=== PATIENT | female | born 1950 | race Caucasian/White ===

== ENCOUNTER → 2020-07-28 14:26 | Outpatient (BNVA) | payer MEDICARE, OTHER, SELFPAY | PROVIDERS: Family Provider Family Medicine; PCP Family Medicine Adult Medicine; Visit Provider Family Medicine Adult Medicine | DX: Z00.00 Encounter for general adult medical examination without abnormal findings (principal); E78.5 Hyperlipidemia, unspecified; I10 Essential (primary) hypertension | CPT/HCPCS: 80053; 80061; 84443; 85025 ==

== ENCOUNTER 2020-09-01 14:30 | Outpatient (CLI) | payer MEDICARE, OTHER, SELFPAY ==
--- NOTE | 2020-09-01 14:43 | MM_ITS ---
WS: [id number] BILATERAL SCREENING DIGITAL MAMMOGRAM WITH CAD HISTORY: SCREENING COMPARISON: 07/02/2019 and 04/29/2018 Bilateral CC and MLO views submitted. Computer aided detection analyzed. Breast composition: There are scattered areas of fibroglandular density. No suspicious masses, microc alcifications or architectural distortion. Benign scattered calcifications in each breast. MM/[place] [id number] IMPRESSION: BI-RADS: 2-Benign FOLLOW UP: 1 Year Follow-up
== END 2020-09-01 14:31 | disposition home or self-care (01) ==
LOC: RADSHAW 14:37
PROVIDERS: PCP Family Medicine Adult Medicine; Visit Provider Family Medicine Adult Medicine
DX: Z12.31 Encounter for screening mammogram for malignant neoplasm of breast (principal)
CPT/HCPCS: 77067

== ENCOUNTER → 2020-12-15 10:15 | Outpatient (BNVA) | payer MEDICARE, OTHER, SELFPAY | PROVIDERS: PCP Family Medicine Adult Medicine; Visit Provider Family Medicine Adult Medicine | DX: E78.5 Hyperlipidemia, unspecified (principal); Z00.00 Encounter for general adult medical examination without abnormal findings; L98.9 Disorder of the skin and subcutaneous tissue, unspecified; I10 Essential (primary) hypertension | CPT/HCPCS: 80061 ==

== ENCOUNTER → 2021-07-10 08:56 | Outpatient (BNVA) | payer MEDICARE, OTHER, SELFPAY | PROVIDERS: PCP Family Medicine Adult Medicine; Visit Provider Family Medicine Adult Medicine | DX: E78.5 Hyperlipidemia, unspecified (principal); Z13.6 Encounter for screening for cardiovascular disorders | CPT/HCPCS: 80053; 80061; 83036; 84443; 85025 ==

== ENCOUNTER 2021-10-27 08:56 | Outpatient (CLI) | payer MEDICARE, OTHER, SELFPAY ==
--- NOTE | 2021-10-27 09:18 | MM_ITS ---
WS: [id number] BILATERAL 3D TOMOSYNTHESIS DIGITAL SCREENING MAMMOGRAPHY WITH CAD CLINICAL INFORMATION: SCREENING HISTORY: Screening mammogram. No current complaints. COMPARISON: September 01, 2020 TECHNIQUE: Bilateral CC and MLO views. FINDINGS: Scattered fibroglandular densities bilaterally. Progressed ovoid nodule subareolar RIGHT breast with new punctate calcifications. Recommend RIGHT diagnostic mammography and ultrasound for further evalua tion. Vascular calcification. Stable incidental punctate calcifications. LEFT breast is unchanged. St ereotactic biopsy marker RIGHT breast. MM/[place] [id number] IMPRESSION: BI-RADS: 0-Incomplete: Need additional imaging evaluation FOLLOW UP: Need Additional Imaging Recommendation RIGHT breast diagnostic mammography and ultrasound for further e valuation.
== END 2021-10-27 08:57 | disposition home or self-care (01) ==
PROVIDERS: PCP Family Medicine Adult Medicine; Visit Provider Family Medicine Adult Medicine
DX: Z12.31 Encounter for screening mammogram for malignant neoplasm of breast (principal)
CPT/HCPCS: 77063; 77067

== ENCOUNTER 2021-11-17 10:22 | Outpatient (CLI) | payer MEDICARE, OTHER, SELFPAY ==
--- NOTE | 2021-11-17 10:29 | MM_ITS ---
WS: [id number] RIGHT 3D TOMOSYNTHESIS DIGITAL MAMMOGRAPHY WITH CAD CLINICAL INFORMATION: ovoid nodule subareolar COMPARISON: October 27, 2021 TECHNIQUE: 5 views of the right breast were obtained. FINDINGS: Scattered fibroglandular densities of the right breast. Stable ovoid nodule 12:00 RIGHT breast with p unctate calcifications. Ultrasound is pending. ULTRASOUND BREAST RIGHT TECHNIQUE: Ultrasound right breast focused area of concern. CLINICAL INFORMATION: ovoid nodule subareolar COMPARISON: None. FINDINGS: Ultrasound RIGHT breast 11 to 1:00 position. At the 12:00 position, 2 cm from the nipple, is a mixed echogenicity solid appearing 6 x 7 x 5 mm lesion with calcification. This lesion is indeterminant and recommend further evaluation with ultrasound-guided biopsy. MM/[place] [id number] IMPRESSION: BI-RADS: 4-Suspicious Finding-Biopsy Should Be Considered FOLLOW UP: US Guided Biopsy Recommended Recommend ultrasound-guided biopsy 12:00 RIGHT breast lesion.
== END 2021-11-17 10:23 | disposition home or self-care (01) ==
PROVIDERS: PCP Family Medicine Adult Medicine; Visit Provider Family Medicine Adult Medicine
DX: R92.8 Other abnormal and inconclusive findings on diagnostic imaging of breast (principal); N63.15 Unspecified lump in the right breast, overlapping quadrants
CPT/HCPCS: 76642; 77061

== ENCOUNTER 2021-11-30 12:14 | Outpatient (CLI) | payer MEDICARE, OTHER, SELFPAY ==
--- NOTE | 2021-11-30 12:28 | US_ITS ---
WS: [id number] ULTRASOUND-GUIDED RIGHT BREAST BIOPSY HISTORY: mixed echogenicity solid appearing 6 x 7 x 5 mm lesion COMPARISON: 11/17/2021 and 10/27/2021 Procedure, risks and complications are explained to the patient. Medications are reviewed. Consent is obtained. The mass in the RIGHT breast is localized with ultrasound. Mass localizes to 12:00, 2 cm from the nip ple. Skin is cleansed with ChloraPrep and anesthetized with 1% buffered lidocaine. Small dermatome is made. Under sterile conditions mass is biopsied with a 14-gauge Achieve needle. Multiple core biopsi es are performed. Material placed in formalin and sent to pathology for review. No complications enco untered. Breast tissue marker (Bard ultrasound enhanced ribbon): Single. Patient left the radiology suite with no complications. Patient is instructed to return to [facility] or [facility] with any concerns. US/[place] [id number] IMPRESSION: 1. Uncomplicated core needle biopsy RIGHT breast mass at 12:00. PATHOLOGY: Benign breast tissue with stromal sclerosis, chronic inflammatory in filtrate or microcalcification. No malignancy. RECOMMENDATION: Diagnostic RIGHT mammogram and ultrasound follow-up in 6 months .
== END 2021-11-30 12:15 | disposition home or self-care (01) ==
LOC: RAD 12:15
PROVIDERS: PCP Family Medicine Adult Medicine; Visit Provider Family Medicine Adult Medicine
DX: R92.8 Other abnormal and inconclusive findings on diagnostic imaging of breast (principal); R92.0 Mammographic microcalcification found on diagnostic imaging of breast
CPT/HCPCS: 19083; 88305

== ENCOUNTER → 2021-12-19 10:23 | Outpatient (BNVA) | payer MEDICARE, OTHER, SELFPAY | PROVIDERS: PCP Family Medicine Adult Medicine; Visit Provider Internal Medicine Cardiovascular Disease | DX: R00.2 Palpitations (principal); Z82.49 Family history of ischemic heart disease and other diseases of the circulatory system; R73.09 Other abnormal glucose | CPT/HCPCS: 99213; 99214 ==

== ENCOUNTER → 2022-03-30 09:38 | Outpatient (BNVA) | payer MEDICARE, OTHER, SELFPAY | PROVIDERS: PCP Family Medicine Adult Medicine; Visit Provider Family Medicine Adult Medicine | DX: R92.8 Other abnormal and inconclusive findings on diagnostic imaging of breast (principal); R73.09 Other abnormal glucose; I10 Essential (primary) hypertension; E78.5 Hyperlipidemia, unspecified | CPT/HCPCS: 80053; 80061; 83036 ==

== ENCOUNTER → 2022-06-25 10:00 | Outpatient (BNVA) | payer MEDICARE, OTHER, SELFPAY | PROVIDERS: PCP Family Medicine Adult Medicine; Visit Provider Registered Nurse Neonatal Intensive Care | DX: N30.01 Acute cystitis with hematuria (principal) | CPT/HCPCS: 81000 ==

== ENCOUNTER → 2022-07-10 11:56 | Outpatient (BNVA) | payer MEDICARE, OTHER, SELFPAY | PROVIDERS: PCP Family Medicine Adult Medicine; Visit Provider Internal Medicine Cardiovascular Disease | DX: R94.31 Abnormal electrocardiogram [ECG] [EKG] (principal); R07.9 Chest pain, unspecified | CPT/HCPCS: 93005 ==

== ENCOUNTER 2022-07-26 07:35 | Outpatient (CLI) | payer MEDICARE, OTHER, SELFPAY ==
--- NOTE | 2022-07-26 07:43 | MM_ITS ---
WS: [id number] DIAGNOSTIC RIGHT DIGITAL TOMOSYNTHESIS MAMMOGRAPHY WITH CAD. RIGHT breast ultrasound, limited HISTORY: Rt breast biopsy 11/30/2021 recommended 6 months f/u COMPARISON: 11/17/2021, 10/27/2021, 09/01/2020, 11/30/2021 Technique: CC, MLO and ML views. Spot compression RIGHT CC. Breast composition: There are scattered areas of fibroglandular density. Biopsy clip in the recently biopsied mass in the anterior RIGHT breast at 12:00 is identified. The mass has significantly decrea sed in size with just a few residual calcifications. This area measures approximately 3.6 mm at a max imum diameter. Otherwise benign calcifications. RIGHT breast ultrasound, limited. Previously biopsied mass with calcifications at 12:00, 2 cm from the nipple, is reidentified measuri ng 4 x 4 x 3 mm. Mass has decreased in size since the prior ultrasound and biopsy. MM/[place] [id number] IMPRESSION: BI-RADS: 3-Probably Benign FOLLOW UP: 6 Month Follow-up Patient to return to annual screening mammography.
== END 2022-07-26 07:36 | disposition home or self-care (01) ==
LOC: RAD 07:35
PROVIDERS: PCP Family Medicine Adult Medicine; Visit Provider Family Medicine Adult Medicine
DX: R92.8 Other abnormal and inconclusive findings on diagnostic imaging of breast (principal)
CPT/HCPCS: 76642; 77061; G0279

== ENCOUNTER 2022-08-03 02:32 | Observation (INO) | payer MEDICARE, OTHER, SELFPAY ==
[2022-08-03] VITALS (57 sets, daily range): BP systolic 103–129; BP diastolic 47–80; PULSE 59–167; RESP 14–26; TEMP 36.6; O2SAT 91–97; BMI 28.2
--- NOTE | 2022-08-03 02:35 | ECG_ITS ---
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 Measurements Intervals [place] Rate: 163 P: 0 NV: 0 QRS: 28 QRSD: 95 T: 16 QT: 266 QTc: 438 Interpretive Statements ATRIAL FIBRILLATION WITH RAPID VENTRICULAR RESPONSE MODERATE ST DEPRESSION [0.05+ mV ST DEPRESSION] CRITICAL TEST RESULT No previous ECG available for comparison Electronically Signed On 08-03-2022 15:38:52 PLACER MINER by Luciana Crespo M.D. [id number]
--- NOTE | 2022-08-03 02:35 | XRR_ITS ---
PROCEDURE INFORMATION: Exam: XR Chest Exam date and time: 08/03/2022 2:39 AM Age: 71 years old Clinical indication: Pain; Prior surgery; Surgery type: RT shoulder. Breast biopsy. Patient HX: C/O palpitations; Additional info: Cp TECHNIQUE: Imaging protocol: Radiologic exam of the chest. Views: 1 view. COMPARISON: No relevant prior studies available. FINDINGS: Lungs: There is a background of emphysema and pulmonary fibrosis. Some hazy opacities are seen in the lower hemithoraces. There is mild indistinctness of pulmonary vasculature. These findings could represent mild pulmonary edema. Pleural spaces: Unremarkable. No pleural effusion. No pneumothorax. Heart/Mediastinum: Unremarkable. No cardiomegaly. Bones/joints: Unremarkable. XR/XR chest 1V portable [id number] IMPRESSION: 1. There may be mild pulmonary edema superimposed over the patient's background emphysema and pulmonary fibrosis.
--- NOTE | 2022-08-03 02:47 | W.ED.ARRPALP ---
HPI - Arrhythmia/Palpitations General: Chief Complaint: Arrhythmia/Palpitations Stated Complaint: heart racing, light headed Time Seen by Provider: 08/03/22 02:35 Source: patient Mode of arrival: ambulatory Limitations: no limitations History of Present Illness: 77-year-old female states since midnight she has been feeling lightheaded along with palpitations she states her hearts been racing for 3 hours she has no history of SVT or A. fib she is in A. fib with RVR with heart rate in the 160s here she denies any pain denies any shortness of breath. Associated symptoms: Deny nausea or vomiting Review of Systems Const: Denies: fever(s), chills, body aches or change in appetite Eyes: Denies: blurry vision or eye discomfort ENMT: Denies: throat pain or dental pain Card: Reports: palpitations and irregular heart rhythm Resp: Denies: dyspnea GI: Denies: abdominal pain, nausea, vomiting or diarrhea : Denies: dysuria Musc: Denies: neck pain or back pain Skin/Breast: Denies: rash Neuro: Denies: headache(s) Psych: Denies: depression Carmelo/Lymph: Denies: easy bruising All/Imm: Denies: urticaria PFSH ED PFSH: Medical History Abnormal mammogram of right breast Acute eczema Atopic dermatitis and related condition Contact dermatitis and other eczema due to plants (except food) Dyslipidemia Encounter for wellness examination Family history of early CAD Hypertension Pain in left shoulder Unspecified rotator cuff tear or rupture of left shoulder, not specified as traumatic Surgical History History of right breast biopsy benign Family History Other CAD (coronary artery disease) Diabetes Hyperlipidemia Hypertension Denies family history of Dementia Anesthesia complication Bleeding disorder Family history of premature coronary artery disease Lung disease Cancer Stroke Social History Smoking and tobacco status: never smoked Alcohol intake: current Alcohol intake frequency: holidays/special occasions only Caregiver/support person: No Lives independently: Yes Household members: spouse Housing: House Marital status: Highest education level completed: Some College, No Degree service: No Current occupational status: retired History of recent travel: Yes Out of state: Yes Current gender identity: Female Beverley/Mandaeism: Shinto Physical Exam Const: COMMON NORMALS: no acute distress, patient oriented x3 and healthy appearing HENMT: COMMON NORMALS: normocephalic and atraumatic HEAD & SCALP: normocephalic and atraumatic Eye: COMMON NORMALS: Equal, round and reactive pupils present and EOMs intact bilaterally PUPIL: Yes Equal, round and reactive pupils present Neck/C-Spine: COMMON NORMALS: full ROM and supple Chest: COMMONS NORMALS: normal inspection of the chest and normal palpation of entire chest wall Resp: COMMON NORMALS: normal respiratory effort, No retractions, No use of accessory muscles and clear to auscultation bilaterally AUSCULTATION: clear to auscultation bilaterally Cardio: COMMON NORMALS: No murmurs present (Cardio) RATE: tachycardic RHYTHM: abnormal rhythm irregularly irregular GI: COMMON NORMALS: Normal to inspection, nondistended, normoactive bowel sounds present, Soft to palpation, non-tender and no masses PALPATION: Yes Soft to palpation Extremity: COMMON NORMALS: normal to inspection and full ROM Neuro: COMMON NORMALS: patient oriented x3, moves all extremities and no focal motor deficits Psych: COMMON NORMALS: mental status grossly normal, Normal thought process present and cooperative THOUGHT PROCESS: Normal thought process present Skin: COMMON NORMALS: no rashes or lesions noted and no wounds GENERAL SKIN EXAM: no rashes or lesions noted Course Vital Signs: Vital signs: Vital Signs Temperature 97.9 F 08/03/22 02:39 Pulse Rate 141 H 08/03/22 03:46 Respiratory Rate 22 H 08/03/22 03:46 Blood Pressure 107/78 08/03/22 03:46 Pulse Oximetry 93 08/03/22 03:46 Oxygen Delivery Me thod 08/03/22 03:46 MDM - Arrhythmia/Palpitations Medical Decision Making Patient presents with Ange valdes with RVR patient initially started on Cardizem her heart rate has improved some she is currently in the 120s she started out in the 160s she has had some hypotension likely due to the Cardizem I am stopping Cardizem we will switch her over to amiodarone I spoke to hospitalist will admit. Lab Data 08/03/22 02:45 08/03/22 02:45 Radiology Impressions Chest X-Ray 08/03/22 02:35 IMPRESSION: 1. There may be mild pulmonary edema superimposed over the patient's background emphysema and pulmonary fibrosis. Laboratory Results WBC 7.5 10^3/uL (4.0-10.0) 08/03/22 02:45 RBC 5.48 10^6/uL (4.1-5.3) H 08/03/22 02:45 Hgb 15.2 g/dL (11.5-15.3) 08/03/22 02:45 Hct 47.7 % (37.0-47.0) H 08/03/22 02:45 MCV 87.0 fl (81-99) 08/03/22 02:45 MCH 27.7 pg (28.0-34.0) L 08/03/22 02:45 MCHC 31.9 g/dL (30.0-36.0) 08/03/22 02:45 RDW 14.5 % (12.1-15.1) 08/03/22 02:45 Plt Count 264 10^3/cmm (130-400) 08/03/22 02:45 MPV 10.3 fL (7.4-10.4) 08/03/22 02:45 Neut % (Auto) 58.0 % 08/03/22 02:45 Lymph % (Auto) 26.2 % 08/03/22 02:45 Whitfield % (Auto) 10.1 % 08/03/22 02:45 Eos % (Auto) 4.7 % 08/03/22 02:45 Baso % (Auto) 0.7 % 08/03/22 02:45 Neut # (Auto) 4.35 10^3/uL (1.8-7.7) 08/03/22 02:45 Lymph # (Auto) 2.0 10^3/uL (0.8-4.8) 08/03/22 02:45 Whitfield # (Auto) 0.8 10^3/uL (0.2-0.9) 08/03/22 02:45 Eos # (Auto) 0.4 10^3/uL (0.0-0.8) 08/03/22 02:45 Baso # (Auto) 0.1 10^3/uL (0.0-0.1) 08/03/22 02:45 Nucleated RBC % (auto) 0 % 08/03/22 02:45 Nucleated RBCs # 0.0 /100WBC 08/03/22 02:45 Sodium 140 mmol/L (136-145) 08/03/22 02:45 Potassium 4.2 mmol/L (3.5-5.1) 08/03/22 02:45 Chloride 106 mmol/L (98-107) 08/03/22 02:45 Carbon Dioxide 22 mmol/L (22-29) 08/03/22 02:45 Anion Gap 16.2 (5-19) 08/03/22 02:45 BUN 14 mg/dL (8-23) 08/03/22 02:45 Creatinine 0.6 mg/dL (0.5-0.9) 08/03/22 02:45 GFR Calculation 98.8 mL/min (90-130) 08/03/22 02:45 Glucose 157 mg/dL (65-115) H 08/03/22 02:45 Calculated Osmolality 294 mOsm/kg (285-295) 08/03/22 02:45 Calcium 9.1 mg/dL (8.5-10.5) 08/03/22 02:45 Total Bilirubin 0.2 mg/dL (0.15-1.2) 08/03/22 02:45 AST 21 U/L (0-32) 08/03/22 02:45 ALT 36 U/L (0-33) H 08/03/22 02:45 Alkaline Phosphatase 101 U/L (35-105) 08/03/22 02:45 Troponin T Baseline 18 ng/L (0-10) H 08/03/22 02:45 Total Protein 6.8 g/dL (6.6-8.7) 08/03/22 02:45 Albumin 3.7 g/dL (3.5-5.2) 08/03/22 02:45 Globulin 3.1 g/dL (1.3-4.6) 08/03/22 02:45 TSH 2.10 uIU/mL (0.27-4.20) 08/03/22 02:45 EKG Data EKG 1: I personally reviewed and interpreted this EKG as follows: EKG interpretation date: 08/03/22 EKG interpretation time: 02:46 Interpretation: afib wih rvr hr [address] or t wave abnormalities qrs 95 qtc 356 Other EKG comments: Chest X-Ray 08/03/22 02:35 IMPRESSION: 1. There may be mild pulmonary edema superimposed over the patient's background emphysema and pulmonary fibrosis. Critical Care Time Critical Care Time: Critical Care Time: Yes Total Critical Care Time: 45 Attestation: The high probability of a clinically significant, sudden or life threatening deterioration of the patient's cv system(s) required my full and direct attention, intervention and personal management. The critical care time is as shown. This time is in addition to time spent performing any reported procedures but includes the following: [x] Data and vital sign review and interpretation [x] Patient assessment, examination and intervention [x] Documentation [x] Medication orders and management Discharge Plan Discharge Patient Disposition: Admitted As Inpatient Clinical Impression: Atrial fibrillation with RVR Condition: Stable Coding Level of Care Code ED Coping Machine Assembler for Chg Fwd Exam Comprehensive
[2022-08-03] MEDS: dilTIAZem 5 mg/mL SDV 5 mL 15 MG IVP (02:52)
[2022-08-03] MEDS: sodium chloride 0.9% 1,000 ML 999 ML IV (02:52)
[2022-08-03 03:05] LABS: Basophils # 0.1 10^3/uL (0.0-0.1); Basophils % 0.7 %; Eosinophils # 0.4 10^3/uL (0.0-0.8); Eosinophils % 4.7 %; Hematocrit 47.7 % (37.0-47.0); Hemoglobin 15.2 g/dL (11.5-15.3); Lymphocytes % 26.2 %; Mean Corpuscular HGB Conc 31.9 g/dL (30.0-36.0); Mean Corpuscular Hemoglobin 27.7 pg (28.0-34.0); Mean Platelet Volume 10.3 fL (7.4-10.4); Monocytes # 0.8 10^3/uL (0.2-0.9); Monocytes % 10.1 %; Neutrophils # 4.35 10^3/uL (1.8-7.7); Nucleated Red Blood Cells % 0 %; Platelet Count 264 10^3/cmm (130-400); Red Blood Count 5.48 10^6/uL (4.1-5.3); Red Cell Distribution Width 14.5 % (12.1-15.1); White Blood Count 7.5 10^3/uL (4.0-10.0)
[2022-08-03 03:25] LABS: Troponin(5th) Baseline 18 ng/L (0-10)
[2022-08-03 03:32] LABS: Alanine Aminotransferase 36 U/L (0-33); Albumin Level 3.7 g/dL (3.5-5.2); Alkaline Phosphatase 101 U/L (35-105); Anion Gap 16.2 (5-19); Aspartate Amino Transferase 21 U/L (0-32); Blood Urea Nitrogen 14 mg/dL (8-23); Calcium 9.1 mg/dL (8.5-10.5); Carbon Dioxide 22 mmol/L (22-29); Chloride 106 mmol/L (98-107); Creatinine Clr Calc Pharmacy 69.5526; Globulin 3.1 g/dL (1.3-4.6); Glomerular Filtration Rate 98.8 mL/min (90-130); Glucose 157 mg/dL (65-115); Osmolality Calculated 294 mOsm/kg (285-295); Potassium 4.2 mmol/L (3.5-5.1); Sodium 140 mmol/L (136-145); Total Bilirubin 0.2 mg/dL (0.15-1.2); Total Protein 6.8 g/dL (6.6-8.7)
[2022-08-03] MEDS: dilTIAZem 100 MG in sodium chloride 0.9% (add-van) 100 ML 10 MG IV (03:42)
--- NOTE | 2022-08-03 04:51 | PM.HP ---
Providers/Chief Complaint Primary Care Provider: Lloyd Gallagher MD Chief Complaint: heart racing, light headed History of Present Illness Keiko Evangelista is a 71 year old female who presents today with chief complaint palpitation. Her symptoms started on midnight. Patient is stating that she has been waking up because of palpitations for quite some days. This time her palpitation was worse and last did until she arrived in the ER and got treatment. No recent fever, viral symptoms, chest pain, nausea vomiting. She has been evaluated by Dr. Santos for her intermittent palpitations in the past. The ER D-dimer was unremarkable Normal CBC and BMP she was in A. fib RVR heart rate 170s, she was started on Cardizem drip which dropped her blood pressure and then she was about to be switched to amiodarone however she converted to normal sinus rhythm She did not receive amiodarone I have given her 30 mg of p.o. Cardizem She does not carry history of hypertension congestive heart failure or diabetes her [id number] is 2 Review of Systems Const: Denies: fever(s) Eyes: Denies: change in vision ENMT: Denies: throat pain Card: Reports: palpitations; Denies: chest pain Resp: Denies: dyspnea GI: Denies: abdominal pain : Denies: flank pain Musc: Denies: neck pain Skin/Breast: Denies: rash Neuro: Denies: headache(s) Psych: Denies: anxiety Endo: Denies: polyuria Carmelo/Lymph: Denies: easy bruising All/Imm: Denies: urticaria Medications/Allergies Home Medications Medication Instructions Recorded Confirmed Last Taken Type beta xgtiwcgl-I-U-lutein-min #29 tab PO 03/24/20 07/14/22 Unknown History 5,000 unit-60 mg-30 unit-2 mg tablet (Macuvite With Lutein) cholecalciferol (vitamin D3) 25 25 mcg PO DAILY 03/24/20 07/14/22 Unknown History mcg (1,000 unit) capsule diflorasone 0.05 % topical ointment 1 applic topical BID 07/28/20 07/14/22 Unknown History clobetasol 0.05 % topical ointment 1 applic topical BID 2 weeks #45 01/16/22 07/14/22 Unknown Rx grams tacrolimus 0.1 % topical ointment 1 applic topical BID #60 grams 01/16/22 07/14/22 Unknown Rx aspirin 81 mg tablet,delayed 81 mg PO .q.o.d. 03/30/22 07/14/22 Unknown History release (Adult Low Dose Aspirin) ezetimibe 10 mg tablet 20 mg PO DAILY cholesterol 90 days 05/22/22 07/14/22 Unknown Rx #180 tabs prednisone 20 mg tablet 20 mg PO BID 5 days #10 tabs 07/14/22 07/14/22 Unknown Rx Allergies Allergy/AdvReac Type Severity Reaction Status Date / Time omeprazole Allergy Mild ALGY-Joint Verified 07/14/22 12:51 Pain bacitracin Allergy ALGY-Redness Verified 07/14/22 12:51 [From Neosporin of Skin ([id number])] neomycin Allergy ALGY-Redness Verified 07/14/22 12:51 [From Neosporin of Skin ([id number]-[id number])] oxycodone [From Percocet] Allergy ADR-Vomitin Verified 07/14/22 12:51 g polymyxin B Allergy ALGY-Redness Verified 07/14/22 12:51 [From Neosporin of Skin (azs-hjr-igfpl)] doxycycline AdvReac Severe ALGY-Anaphy Verified 07/14/22 12:51 laxis atorvastatin AdvReac Intermediate ADR-Muscle Verified 07/14/22 12:51 Pain lovastatin AdvReac ADR-Cramping Verified 07/14/22 12:51 of the Muscles PFSH Acute PFSH: Medical History Abnormal mammogram of right breast Acute eczema Atopic dermatitis and related condition Contact dermatitis and other eczema due to plants (except food) Dyslipidemia Encounter for wellness examination Family history of early CAD Hypertension Pain in left shoulder Unspecified rotator cuff tear or rupture of left shoulder, not specified as traumatic Surgical History History of right breast biopsy benign Family History Other CAD (coronary artery disease) Diabetes Hyperlipidemia Hypertension Denies family history of Dementia Anesthesia complication Bleeding disorder Family history of premature coronary artery disease Lung disease Cancer Stroke Social History Smoking and tobacco status: never smoked Alcohol intake: current Alcohol intake frequency: holidays/special occasions only Caregiver/support person: No Lives independently: Yes Household members: spouse Housing: House Marital status: Highest education level completed: Some College, No Degree service: No Current occupational status: retired History of recent travel: Yes Out of state: Yes Current gender identity: Female Beverley/Cheondoism: Congregational Vitals/I&O/Wt Last Vital Signs Temp 97.9 F 08/03/22 02:39 Pulse 141 H 08/03/22 03:46 Resp 22 H 08/03/22 03:46 BP 107/78 08/03/22 03:46 Pulse Ox 93 08/03/22 03:46 O2 Del Method 08/03/22 03:46 08/02/22 08/02/22 08/03/22 14:59 22:59 06:59 Intake Total 1011 / 1011 Balance 1011 / 1011 Weight last 48 hrs Weight 79.379 kg Physical Exam Narrative: Patient is sitting comfortably in her bed Normal sinus rhythm heart rate in 70s Normal blood pressure Awake and alert Nonfocal neuro exam S1, S2 Abdomen soft No signs of edema Nonfocal neuro exam Pleasant and cooperative Well-hydrated Appears stated age Data 08/03/22 02:45 08/03/22 02:45 A&P Assessment and plan (1) Atrial fibrillation with RVR: (2) Atopic dermatitis and related condition: Plan New onset A. fib with RVR Converted to sinus rhythm with Cardizem I have transitioned her to p.o. Cardizem regimen for now Her Wilbert Vascor is 2, patient is stating she does not take anything for her hypertension she in fact does not carry any history of hypertension as per the patient Her blood pressure is within normal range No history of diabetes or vascular disease, her A1c is 6.3, she is in prediabetic range I would continue aspirin along Cardizem for now and have her follow-up with cardiology outpatient She might be able to go home today D-dimer unremarkable No significant left leg abnormality noted Check magnesium level, potassium is 4.2, TSH normal Full code Cardiac diet DVT prophylaxis Lovenox Attestations Medical Necessity Statement*: Anticipating discharge within 48 hours Time Spent in Patient Care: 40 Coding Level of Care Code Acute Steel Melter for Chg Fwtiffany Diagnoses Atrial fibrillation with RVR I48.91 Atopic dermatitis and related condition L20.9
[2022-08-03] MEDS: dilTIAZem 30 mg Tablet PO (05:06)
[2022-08-03 05:30] LABS: D Dimer 0.59 ug/mIFEU (0-0.59)
--- NOTE | 2022-08-03 06:29 | USCV_ITS ---
Keiko Evangelista Age: 71 Gender: F : 1950 Exam Date: 08/03/2022 06:43 Ordering Phys: Kassidy Roberts MD Technologist: Matteo Mustafa [place] [facility] [place]ication: Atrial fibrillation BP: 110 / 63 HR: 71 Rhythm: Sinus Technical Quality: Adequate MEASUREMENTS (Male / Female) Normal Values 2D ECHO LV Diastolic Diameter PLAX 4.0 cm 4.2 - 5.9 / 3.9 - 5.3 cm LV Systolic Diameter PLAX 2.7 cm IVS Diastolic Thickness 1.0 cm 0.6 - 1.0 / 0.6 - 0.9 cm IVS Systolic Thickness 1.2 cm LVPW Diastolic Thickness 1.1 cm 0.6 - 1.0 / 0.6 - 0.9 cm LVPW Systolic Thickness 1.3 cm LVOT Diameter 2.0 cm LV Ejection Fraction 2D Teich 63.1 % LV Ejection Fraction MOD 2C 62.7 % LV Ejection Fraction 2C AL 62.7 % LA Diameter 3.4 cm Aorta at Sinotubular Diameter 2.6 cm IVC Diameter 1.7 cm M-MODE Aortic Annulus Diameter 3.4 cm LA Ao Ratio MM 1.1 MV E Point Septal Separation 0.7 cm DOPPLER AV Peak Velocity 121.0 cm/s LVOT Peak Velocity 104.0 cm/s AV Area Cont Eq vti 3.1 cm squared AV Area Cont Eq pk 2.8 cm squared MV Area PHT 4.9 cm squared Mitral E to A Ratio 1.3 MV E' Velocity 40.5 cm/s Mitral E to MV E' Ratio 7.2 Mitral E to LV E' Lateral Ratio 7.1 Mitral E to LV E' Septal Ratio 7.4 TR Peak Velocity 255.7 cm/s TR Peak Gradient 26.1 mmHg TV Peak E Velocity 71.0 cm/s Right Atrial Pressure 3.0 mmHg Pulmonary Artery Systolic Pressu 29.1 mmHg RV Acceleration Time 0.1 s FINDINGS Left Ventricle Normal left ventricular size, systolic function and wall thickness, with no regional wall motion abnormalities. Left ventricular ejection fraction is estimated at 70 %. Normal diastolic function. Right Ventricle Normal right ventricular size and systolic function. Right ventricular systolic pressure 22 mmHg. Right Atrium Normal right atrial size. Left Atrium Normal left atrial size. Mitral Valve Structurally normal mitral valve. No mitral valve stenosis. Trace mitral valve regurgitation. Aortic Valve Structurally normal trileaflet aortic valve. No aortic valve stenosis. No aortic valve regurgitation. Tricuspid Valve Structurally normal tricuspid valve. No tricuspid valve stenosis. Trace to mild tricuspid valve regurgitation. Pulmonic Valve Structurally normal pulmonic valve. No pulmonary valve stenosis. No significant pulmonary valve regurgitation. Pericardium No pericardial effusion. Aorta Normal size aortic root and proximal ascending aorta. IVC Normal sized IVC dimension. CONCLUSIONS 1. Normal left ventricular size, systolic function and wall thickness, with no regional wall motion abnormalities. Left ventricular ejection fraction is estimated at 70 %. Normal diastolic function. 2. Trace to mild tricuspid valve regurgitation. 3. No prior similar studies to compare. Loli Santos MD (Electronically Signed) Final Date: 03 August 2022 09:37 S
[2022-08-03 06:59] LABS: Troponin 5 2HR 26.34 ng/L (0-10); Troponin 5 2HR Delta 8.34 ABS# (0-10)
[2022-08-03 07:06] LABS: NT Pro B Type Natriuretic Pept 114 pg/mL (0-125)
--- NOTE | 2022-08-03 08:35 | ECG_ITS ---
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 Measurements Intervals [place] Rate: 73 P: 39 WI: 157 QRS: 24 QRSD: 84 T: 50 QT: 375 QTc: 414 Interpretive Statements SINUS RHYTHM Compared to ECG 08/03/2022 02:46:01 Atrial fibrillation no longer present ST (T wave) deviation no longer present Electronically Signed On 08-03-2022 15:44:04 STORAGE GARAGE MANAGER by Luciana Crespo M.D. [id number]
[2022-08-03 09:20] LABS: Troponin 5 6HR 24.14 ng/L (0-10)
[2022-08-03 09:23] LABS: Troponin 5 6HR Delta 6.14 ng/L (0-12)
--- NOTE | 2022-08-03 09:35 | P.DS_ITS ---
Discharge Providers Date of Admission: 08/03/22 08:07 Date of Discharge: August 03, 2022 Attending Provider at Admission: Kassidy Roberts MD Attending Provider at Discharge: Kassidy Roberts MD Primary Care Provider: Lloyd Gallagher MD Diagnoses at Discharge Discharge Diagnosis (1) Atrial fibrillation with RVR: Status: Acute (2) Atopic dermatitis and related condition: Status: Acute Reason for Visit Reason for Visit: heart racing, light headed Hospital Course Hospital Course Keiko is a 71-year-old white female who presented to the emergency department complaining of palpitations. On arrival to the emergency department she was found to be in atrial fibrillation with rapid ventricular rate. She received some Cardizem IV, and converted to sinus rhythm. TSH, magnesium, potassium were all normal. An echocardiogram was performed which was essentially normal. I discussed with her the risks and benefits of anticoagulation, as well as no anticoagulation, and at this point she would like to resume aspirin 325 mg daily and follow-up with cardiology as an outpatient. She had been on this previously for palpitations. She was placed on metoprolol 25 mg twice daily secondary to her atrial fibrillation. She will follow-up with cardiology in approximately 2 to 3 weeks. She was given an opportunity to ask questions, and agrees with the plan. Physical Exam Narrative: General exam is no distress Neck is supple no lymphadenopathy or thyromegaly Cardiovascular regular rate and rhythm without murmur Lungs clear no wheezing or crackles Abdomen is soft nontender positive bowel sounds Extremities no cyanosis clubbing or edema, cap refill brisk Skin no rash Discharge Data Studies Completed and Pending Completed Studies During Hospitalization Category Date Time Status XR chest 1V portable [id number] Stat Exams 08/03/22 02:35 Completed Pending at discharge Category Date Time Status Basic Metabolic Panel AM LABS Lab 08/04/22 04:00 Ordered Complete Blood Count w/Auto AM LABS Lab 08/04/22 04:00 Ordered Magnesium AM LABS Lab 08/04/22 04:00 Ordered CV. echo complete* [id number] Stat Ultrasound 08/03/22 06:29 Taken Radiology Impressions Chest X-Ray 08/03/22 02:35 IMPRESSION: 1. There may be mild pulmonary edema superimposed over the patient's background emphysema and pulmonary fibrosis. Laboratory Results WBC 7.5 10^3/uL (4.0-10.0) 08/03/22 02:45 RBC 5.48 10^6/uL (4.1-5.3) H 08/03/22 02:45 Hgb 15.2 g/dL (11.5-15.3) 08/03/22 02:45 Hct 47.7 % (37.0-47.0) H 08/03/22 02:45 MCV 87.0 fl (81-99) 08/03/22 02:45 MCH 27.7 pg (28.0-34.0) L 08/03/22 02:45 MCHC 31.9 g/dL (30.0-36.0) 08/03/22 02:45 RDW 14.5 % (12.1-15.1) 08/03/22 02:45 Plt Count 264 10^3/cmm (130-400) 08/03/22 02:45 MPV 10.3 fL (7.4-10.4) 08/03/22 02:45 Neut % (Auto) 58.0 % 08/03/22 02:45 Lymph % (Auto) 26.2 % 08/03/22 02:45 [place] % (Auto) 10.1 % 08/03/22 02:45 Eos % (Auto) 4.7 % 08/03/22 02:45 Baso % (Auto) 0.7 % 08/03/22 02:45 Neut # (Auto) 4.35 10^3/uL (1.8-7.7) 08/03/22 02:45 Lymph # (Auto) 2.0 10^3/uL (0.8-4.8) 08/03/22 02:45 [place] # (Auto) 0.8 10^3/uL (0.2-0.9) 08/03/22 02:45 Eos # (Auto) 0.4 10^3/uL (0.0-0.8) 08/03/22 02:45 Baso # (Auto) 0.1 10^3/uL (0.0-0.1) 08/03/22 02:45 Nucleated RBC % (auto) 0 % 08/03/22 02:45 Nucleated RBCs # 0.0 /100WBC 08/03/22 02:45 D-Dimer 0.59 ug/mIFEU (0-0.59) 08/03/22 02:43 Sodium 140 mmol/L (136-145) 08/03/22 02:45 Potassium 4.2 mmol/L (3.5-5.1) 08/03/22 02:45 Chloride 106 mmol/L (98-107) 08/03/22 02:45 Carbon Dioxide 22 mmol/L (22-29) 08/03/22 02:45 Anion Gap 16.2 (5-19) 08/03/22 02:45 BUN 14 mg/dL (8-23) 08/03/22 02:45 Creatinine 0.6 mg/dL (0.5-0.9) 08/03/22 02:45 GFR Calculation 98.8 mL/min (90-130) 08/03/22 02:45 Glucose 157 mg/dL (65-115) H 08/03/22 02:45 Calculated Osmolality 294 mOsm/kg (285-295) 08/03/22 02:45 Calcium 9.1 mg/dL (8.5-10.5) 08/03/22 02:45 Magnesium 2.0 mg/dL (1.7-2.3) 08/03/22 06:08 Total Bilirubin 0.2 mg/dL (0.15-1.2) 08/03/22 02:45 AST 21 U/L (0-32) 08/03/22 02:45 ALT 36 U/L (0-33) H 08/03/22 02:45 Alkaline Phosphatase 101 U/L (35-105) 08/03/22 02:45 Troponin T Baseline 18 ng/L (0-10) H 08/03/22 02:45 Troponin T 120 Minute 26.34 ng/L (0-10) H 08/03/22 06:08 Delta Troponin T 8.34 ABS# (0-10) 08/03/22 06:08 Troponin T Hi Sens 6Hr 24.14 ng/L (0-10) H 08/03/22 08:55 Troponin T Hi Sens 6Hr Delta 6.14 ng/L (0-12) 08/03/22 08:55 NT-Pro-B Natriuret Pep 114 pg/mL (0-125) 08/03/22 06:08 Total Protein 6.8 g/dL (6.6-8.7) 08/03/22 02:45 Albumin 3.7 g/dL (3.5-5.2) 08/03/22 02:45 Globulin 3.1 g/dL (1.3-4.6) 08/03/22 02:45 TSH 2.10 uIU/mL (0.27-4.20) 08/03/22 02:45 Vitals Last Vital Signs Temp 97.9 F 08/03/22 02:39 Pulse 85 08/03/22 08:33 Resp 16 08/03/22 08:33 BP 112/63 08/03/22 05:58 Pulse Ox 95 08/03/22 08:33 O2 Del Method 08/03/22 08:33 Discharge Plan Discharge Patient Disposition: Home Condition: Stable Prescriptions: New metoprolol tartrate 25 mg Tablet 25 mg PO BID@0900,2100 Qty: 60 0RF aspirin 325 mg tablet,delayed release (DR/EC) 325 mg PO DAILY Qty: 30 0RF Continued cholecalciferol (vitamin D3) 25 mcg (1,000 unit) capsule 25 mcg PO DAILY Macuvite With Lutein 5,000-60-30-2 dlzu-pj-tchj-mg tablet 1 tab PO BID diflorasone 0.05 % ointment 1 applic topical BID tacrolimus 0.1 % ointment 1 applic topical BID Qty: 60 0RF Rx Instructions: Apply twice daily to affected area on face clobetasol 0.05 % ointment 1 applic topical BID 14 Days Qty: 45 1RF Rx Instructions: Apply to affected area no more than 2 weeks per month. not for face or skin folds ezetimibe 10 mg tablet 20 mg PO DAILY 90 Days Qty: 180 3RF Discontinued aspirin [Adult Low Dose Aspirin] 81 mg tablet,delayed release (DR/EC) 81 mg PO DAILY Discharge Orders: Discharge Order (Routine); Ordered 08/03/22 Ordered By: Saurav Jenkins Referrals: Lloyd Gallagher MD [Primary Care Provider] - 4-7 days (Please call and schedule an appointment after the clinic opens on 08/06/2022.) Loli Santos MD [Physician] - 2 weeks (Please call for follow up appointment after clinic opens on 08/06/2022. follow up AFib with RVR) Discharge Diet: Regular Discharge Activity: Increase activity as tolerated Patient Instructions: Atrial Fibrillation, Metoprolol (By mouth), Aspirin (By mouth), Opioid Safety Activity Restrictions/Additional Instructions: Take all medicine as prescribed Call for any concerns or return Reduce caffeine Patient's Health Concerns: Palpitations Assessment: Atrial fibrillation with rapid ventricular rate, spontaneously converted Plan of Treatment: Metoprolol 25 mg twice daily Aspirin 325 mg daily Goals: No recurrence of atrial fibrillation Discharge Attestations Time Spent in Discharge Care*: greater than 30 min Quality Metrics Clinical Quality Measures [ No reported AMI, CVA or VTE this stay] Coding Level of Care Code Acute g [facility] note Diagnoses Atrial fibrillation with RVR I48.91 Atopic dermatitis and related condition L20.9
[2022-08-03] MEDS: metoprolol tartrate 25 mg Tablet PO (10:39)
--- NOTE | 2022-08-03 11:00 | ECG_ITS ---
[facility] Test Date: 2022-08-03 Pat Name: Keiko Evangelista Department: Room: ED Gender: Female Manager Body: : 1950 Requested By: Macario Prescott Order Number: [id number] Reading MD: Luciana Crespo M.D. Measurements Intervals [place] Rate: 66 P: 47 TX: 161 QRS: 19 QRSD: 80 T: 39 QT: 387 QTc: 408 Interpretive Statements SINUS RHYTHM LOW QRS VOLTAGE IN PRECORDIAL LEADS [QRS DEFLECTION < 1.0 mV IN CHEST LEADS] Compared to ECG 08/03/2022 08:43:27 Low QRS voltage now present Electronically Signed On 08-03-2022 15:44:40 METALS SALES REPRESENTATIVE by Luciana Crespo M.D. [id number]
== END 2022-08-03 12:30 | disposition home or self-care (01) ==
LOC: ER 05:06 → ER IP 08:07
PROVIDERS: Admitting Provider Internal Medicine; Emergency Provider Emergency Medicine; PCP Family Medicine Adult Medicine; Visit Provider Internal Medicine
DX: I48.91 Unspecified atrial fibrillation (principal); L20.9 Atopic dermatitis, unspecified; E78.5 Hyperlipidemia, unspecified; Z82.49 Family history of ischemic heart disease and other diseases of the circulatory system; I10 Essential (primary) hypertension
CPT/HCPCS: 36415; 71045; 80053; 83735; 83880; 84443; 84484; 85025; 85378; 93005; 93306; 96365; 96366; 96367; 96375; 99291; G0378; J3490; J7030

== ENCOUNTER → 2022-08-17 10:49 | Outpatient (BNVA) | payer MEDICARE, OTHER, SELFPAY | PROVIDERS: PCP Family Medicine Adult Medicine; Visit Provider Nurse Practitioner Family | DX: I48.91 Unspecified atrial fibrillation (principal) | CPT/HCPCS: 93005; 99214 ==

== ENCOUNTER → 2022-10-25 10:43 | Outpatient (BNVA) | payer MEDICARE, OTHER, SELFPAY | PROVIDERS: PCP Family Medicine Adult Medicine; Visit Provider Family Medicine Adult Medicine | DX: R73.09 Other abnormal glucose (principal); E11.9 Type 2 diabetes mellitus without complications | CPT/HCPCS: 83036 ==

== ENCOUNTER 2022-11-30 19:37 | Emergency (ER) | payer MEDICARE, OTHER, SELFPAY ==
[2022-11-30 19:42] VITALS: BP 152/79; PULSE 84; RESP 16; TEMP 37.4; O2SAT 94
--- NOTE | 2022-11-30 20:45 | XRR_ITS ---
PROCEDURE INFORMATION: Exam: XR Chest Exam date and time: 11/30/2022 9:00 PM Age: 72 years old Clinical indication: Fever TECHNIQUE: Imaging protocol: Radiologic exam of the chest. Views: 1 view. COMPARISON: CR (CHEST, ) 08/03/2022 2:39 AM FINDINGS: Lungs: Mild linear atelectasis in the left lung base. The right lung is clear. No consolidation. Pleural spaces: Unremarkable. No pleural effusion. No pneumothorax. Heart/Mediastinum: Unremarkable. No cardiomegaly. Bones/joints: [place] in the right humerus. XR/XR chest 1V portable [id number] IMPRESSION: No acute findings.
[2022-11-30 21:26] VITALS: PULSE 85; TEMP 37.9; O2SAT 96
[2022-11-30 23:00] VITALS: PULSE 88; TEMP 38.1; O2SAT 95
--- NOTE | 2022-11-30 23:19 | ECG_ITS ---
[facility] Test Date: 2022-11-30 Pat Name: Keiko Evangelista Department: Room: Gender: Female Perioperative Manager: : 1950 Requested By: Brody Moran Order Number: [id number] Kenton MD: Dylan Ball M.D. Measurements Intervals [place] Rate: 76 P: 46 GA: 152 QRS: 22 QRSD: 72 T: 34 QT: 342 QTc: 385 Interpretive Statements SINUS RHYTHM POSSIBLE ANTERIOR MYOCARDIAL INFARCTION , PROBABLY OLD [30 ms Q WAVE IN V3/V4, OR R < 0.2 mV IN V4] Compared to ECG 08/03/2022 11:00:41 Myocardial infarct finding now present Electronically Signed On 12-01-2022 10:04:19 CDT by Dylan Ball M.D. [id number]
[2022-12-01 00:14] LABS: Influenza A by IFA negative (Negative); Influenza B by IFA negative (Negative); SARS Covid-2 Antigen negative (Negative)
[2022-12-01 00:23] LABS: Add Urine Microscopic? YES; Bilirubin Urine Neg (Negative); Blood Urine 2+ (Negative); Glucose Urine UA Norm (Normal); Ketones Urine Negative (Negative); Leukocyte Esterase Urine Negative (Negative); Nitrate Urine Negative (Negative); Protein Urine Neg (Negative); Specific Gravity, Urine 1.025 (1.005-1.030); Urine Appearance Clear (CLEAR); Urine Color Yellow (Yellow); Urobilinogen Urine Norm (Negative); pH Urine 5 (5-7)
[2022-12-01 00:24] LABS: RBC Urine 0-4 /hpf (0-2); Squamous Epithelial Cell Urine 0-4 /hpf (0-5); WBC Urine 0-4 /hpf (0-5)
[2022-12-01 00:25] LABS: Bacteria Urine TRACE /hpf; Mucus Urine 1+ /hpf
[2022-12-01 01:00] VITALS: BP 142/73; PULSE 85; RESP 16; O2SAT 91
[2022-12-01 01:30] VITALS: BP 142/78; PULSE 88; RESP 22; O2SAT 92
[2022-12-01 02:00] VITALS: BP 138/76; PULSE 91; RESP 24; O2SAT 94
[2022-12-01 02:30] VITALS: BP 121/59; PULSE 84; RESP 19; O2SAT 93
[2022-12-01 02:41] LABS: Basophils % 0.3 %; Eosinophils % 0.6 %; Hemoglobin 13.6 g/dL (11.5-15.3); Lymphocytes # 1.1 10^3/uL (0.8-4.8); Lymphocytes % 34.4 %; Mean Corpuscular HGB Conc 31.6 g/dL (30.0-36.0); Mean Corpuscular Hemoglobin 27.3 pg (28.0-34.0); Mean Corpuscular Volume 86.3 fl (81-99); Mean Platelet Volume 10.6 fL (7.4-10.4); Monocytes # 0.4 10^3/uL (0.2-0.9); Monocytes % 12.3 %; Neutrophils # 1.66 10^3/uL (1.8-7.7); Neutrophils % 52.4 %; Nucleated Red Blood Cells % 0 %; Platelet Count 181 10^3/cmm (130-400); Red Blood Count 4.98 10^6/uL (4.1-5.3); Red Cell Distribution Width 14.5 % (12.1-15.1); White Blood Count 3.2 10^3/uL (4.0-10.0)
[2022-12-01 02:59] LABS: Alanine Aminotransferase 19 U/L (0-33); Albumin Level 3.5 g/dL (3.5-5.2); Alkaline Phosphatase 70 U/L (35-105); Anion Gap 14.7 (5-19); Aspartate Amino Transferase 19 U/L (0-32); Blood Urea Nitrogen 12 mg/dL (8-23); Calcium 8.2 mg/dL (8.5-10.5); Carbon Dioxide 22 mmol/L (22-29); Chloride 104 mmol/L (98-107); Creatinine Clr Calc Pharmacy 69.1129; Globulin 2.5 g/dL (1.3-4.6); Glucose 107 mg/dL (65-115); Osmolality Calculated 284 mOsm/kg (285-295); Potassium 3.7 mmol/L (3.5-5.1); Sodium 137 mmol/L (136-145); Total Bilirubin 0.2 mg/dL (0.15-1.2)
[2022-12-01 03:00] LABS: Lactate (Lactic Acid level) 0.8 mmol/L (0.5-2.2)
[2022-12-01 03:35] VITALS: BP 132/79; PULSE 91; RESP 24; O2SAT 91
[2022-12-01] MEDS: rifAMPin 300 mg Capsule 600 MG PO (03:37)
--- NOTE | 2022-12-01 05:11 | ED_ITS ---
HPI - Fever General: Chief Complaint: Fever Stated Complaint: Fever\BP\Was in Afib in Dec\Lethagic Time Seen by Provider: 11/30/22 23:41 Source: patient History of Present Illness: 72-year-old female who has had a fever today. No known origin. She has been generally weak for the past couple of days. She felt a bit worse today. No significant shortness of breath. No chest pain. No dysuria. Fever was up to 101.2. MD elicited complaint: fever Onset (ago): hour(s) Context: other Associated symptoms: Reports chills, headache(s) and nasal congestion; Deny abdominal pain, flank pain, chest pain, confusion, cough, diarrhea, dysuri a, sore throat or vomiting Treatments prior to arrival fever: none Review of Systems Const: Reports: chills ENMT: Reports: nasal congestion Card: Denies: chest pain GI: Denies: abdominal pain, vomiting or diarrhea : Denies: flank pain or dysuria Neuro: Reports: headache(s); Denies: confusion PFSH ED PFSH: Medical History Abnormal mammogram of right breast 07/26 wnl, back to annual Acute eczema Diabetes mellitus type 2 in nonobese Dyslipidemia Encounter for wellness examination Hypertension Pain in left shoulder Unspecified rotator cuff tear or rupture of left shoulder, not specified as traumatic Surgical History History of right breast biopsy benign Family History Other CAD (coronary artery disease) Diabetes Hyperlipidemia Hypertension Denies family history of Dementia Anesthesia complication Bleeding disorder Family history of premature coronary artery disease Lung disease Cancer Stroke Social History Smoking and tobacco status: never smoked Alcohol intake: current Alcohol intake frequency: holidays/special occasions only Substance/Drug Use: never Caregiver/support person: No Lives independently: Yes Household members: spouse Housing: House Marital status: Highest education level completed: Some College, No Degree service: No Current occupational status: retired Current gender identity: Female Beverley/Mu-Ism: Episcopal Physical Exam Const: COMMON NORMALS: no acute distress GENERAL APPEARANCE: cooperative; not ill appearing and not frail appearing HENMT: COMMON NORMALS: normocephalic, atraumatic and Normal external nose present HEAD & SCALP: normocephalic and atraumatic FACE & SINUS: normal facial exam and face symmetric NOSE: Normal external nose present Eye: COMMON NORMALS: Equal, round and reactive pupils present and EOMs intact bilaterally PUPIL: Yes Equal, round and reactive pupils present Neck/C-Spine: GENERAL: Yes trachea midline Chest: CHEST: Yes Symmetrical chest wall rise Resp: COMMON NORMALS: normal respiratory effort, No retractions, No use of accessory muscles and clear to auscultation bilaterally AUSCULTATION: clear to auscultation bilaterally Cardio: COMMON NORMALS: regular rate and regular rhythm RATE: regular rate RHYTHM: regular rhythm GI: COMMON NORMALS: Normal to inspection, nondistended, normoactive bowel soun ds present Extremity: COMMON NORMALS: no pedal edema Neuro: RONNY COMA SCALE: document GCS findings Arnold coma scale eye opening: Spontaneous Arnold coma scale verbal response: Orientated Ronny coma scale motor response: Obey commands Ronny coma scale total score: 15 SENSORY EXAM: Yes extremities (intact) Psych: COMMON NORMALS: speech normal SPEECH: Yes normal speech Skin: COMMON NORMALS: no rashes or lesions noted GENERAL SKIN EXAM: no rashes or lesions noted Course Vital Signs: Vital signs: Vital Signs Temperature 100.5 F H 11/30/22 23:00 Pulse Rate 91 12/01/22 03:35 Respiratory Rate 24 H 12/01/22 03:35 Blood Pressure 132/79 12/01/22 03:35 Pulse Oximetry 91 12/01/22 03:35 Oxygen Delivery Me thod Room Air 11/30/22 23:00 MDM - Fever Medical Decision Making Temperatures been up to 100.5 here. No specific other symptoms. She has mild leukopenia. Neutrophil count is 1.6. Urinalysis is not remarkable. BMP is not remarkable. Chest x-ray shows nothing acute. Platelet count has fallen since her last CBC. On reinterview, the patient declares that she has 1 tick bite. Given her leukopenia and low platelet count we will send a tick panel, and cover for tick fever. She has an anaphylactic reaction history of doxycycline, so we will have to use rifampin. COVID and flu were negative. She will be allowed discharge with close monitoring of temperature, to return if worsening symptoms. Lab Data 12/01/22 02:35 12/01/22 02:35 Radiology Impressions Chest X-Ray 11/30/22 20:45 IMPRESSION: No acute findings. Laboratory Results WBC 3.2 10^3/uL (4.0-10.0) L 12/01/22 02:35 RBC 4.98 10^6/uL (4.1-5.3) 12/01/22 02:35 Hgb 13.6 g/dL (11.5-15.3) 12/01/22 02:35 Hct 43.0 % (37.0-47.0) 12/01/22 02:35 MCV 86.3 fl (81-99) 12/01/22 02:35 MCH 27.3 pg (28.0-34.0) L 12/01/22 02:35 MCHC 31.6 g/dL (30.0-36.0) 12/01/22 02:35 RDW 14.5 % (12.1-15.1) 12/01/22 02:35 Plt Count 181 10^3/cmm (130-400) 12/01/22 02:35 MPV 10.6 fL (7.4-10.4) H 12/01/22 02:35 Neut % (Auto) 52.4 % 12/01/22 02:35 Lymph % (Auto) 34.4 % 12/01/22 02:35 [place] % (Auto) 12.3 % 12/01/22 02:35 Eos % (Auto) 0.6 % 12/01/22 02:35 Baso % (Auto) 0.3 % 12/01/22 02:35 Neut # (Auto) 1.66 10^3/uL (1.8-7.7) L 12/01/22 02:35 Lymph # (Auto) 1.1 10^3/uL (0.8-4.8) 12/01/22 02:35 [place] # (Auto) 0.4 10^3/uL (0.2-0.9) 12/01/22 02:35 Eos # (Auto) 0.0 10^3/uL (0.0-0.8) 12/01/22 02:35 Baso # (Auto) 0.0 10^3/uL (0.0-0.1) 12/01/22 02:35 Nucleated RBC % (auto) 0 % 12/01/22 02:35 Nucleated RBCs # 0.0 /100WBC 12/01/22 02:35 Sodium 137 mmol/L (136-145) 12/01/22 02:35 Potassium 3.7 mmol/L (3.5-5.1) 12/01/22 02:35 Chloride 104 mmol/L (98-107) 12/01/22 02:35 Carbon Dioxide 22 mmol/L (22-29) 12/01/22 02:35 Anion Gap 14.7 (5-19) 12/01/22 02:35 BUN 12 mg/dL (8-23) 12/01/22 02:35 Creatinine 0.5 mg/dL (0.5-0.9) 12/01/22 02:35 GFR Calculation Not Reportable 12/01/22 02:35 Glucose 107 mg/dL (65-115) 12/01/22 02:35 Calculated Osmolality 284 mOsm/kg (285-295) L 12/01/22 02:35 Lactate 0.8 mmol/L (0.5-2.2) 12/01/22 02:35 Calcium 8.2 mg/dL (8.5-10.5) L 12/01/22 02:35 Total Bilirubin 0.2 mg/dL (0.15-1.2) 12/01/22 02:35 AST 19 U/L (0-32) 12/01/22 02:35 ALT 19 U/L (0-33) 12/01/22 02:35 Alkaline Phosphatase 70 U/L (35-105) 12/01/22 02:35 Total Protein 6.0 g/dL (6.6-8.7) L 12/01/22 02:35 Albumin 3.5 g/dL (3.5-5.2) 12/01/22 02:35 Globulin 2.5 g/dL (1.3-4.6) 12/01/22 02:35 Urine Color Yellow (Yellow) 11/30/22 23:44 Urine Appearance Clear (CLEAR) 11/30/22 23:44 Urine pH 5 (5-7) 11/30/22 23:44 Ur Specific [place] 1.025 (1.005-1.030) 11/30/22 23:44 Urine Protein Neg (Negative) 11/30/22 23:44 Urine Glucose (UA) Norm (Normal) 11/30/22 23:44 Urine Ketones Negative (Negative) 11/30/22 23:44 Urine Blood 2+ (Negative) H 11/30/22 23:44 Urine Nitrate Negative (Negative) 11/30/22 23:44 Urine Bilirubin Neg (Negative) 11/30/22 23:44 Urine Urobilinogen Norm mg/dL (Negative) 11/30/22 23:44 Ur Leukocyte Esterase Negative (Negative) 11/30/22 23:44 Urine RBC 0-4 /hpf (0-2) H 11/30/22 23:44 Urine WBC 0-4 /hpf (0-5) H 11/30/22 23:44 Ur Squamous Epith Cells 0-4 /hpf (0-5) H 11/30/22 23:44 Amorphous Sediment Not Reportable 11/30/22 23:44 Urine Bacteria Trace /hpf (NONE) 11/30/22 23:44 Urine Mucus 1+ /hpf 11/30/22 23:44 Influenza Type A Ag negative (Negative) 11/30/22 23:44 Influenza Type B Ag negative (Negative) 11/30/22 23:44 SARS-CoV-2 Ag (Rapid) negative (Negative) 11/30/22 23:44 Discharge Plan Discharge Patient Disposition: Home Clinical Impression: Fever of unknown origin Condition: Stable Prescriptions: New rifampin 300 mg capsule 300 mg PO Q12H Qty: 20 0RF No Action cholecalciferol (vitamin D3) 25 mcg (1,000 unit) capsule 25 mcg PO DAILY Macuvite With Lutein 5,000-60-30-2 rzyu-ps-ozpk-mg tablet 1 tab PO BID diflorasone 0.05 % ointment 1 applic topical BID hydrocortisone 2.5 % cream 1 applic topical BID PRN (Reason: skin irritation) Qty: 28 0RF tacrolimus 0.1 % ointment 1 applic topical BID Qty: 60 0RF Rx Instructions: Apply twice daily to affected area on face clobetasol 0.05 % ointment 1 applic topical BID 14 Days Qty: 45 1RF Rx Instructions: Apply to affected area no more than 2 weeks per month. not for face or skin folds ezetimibe 10 mg tablet 10 mg PO BID metoprolol tartrate 25 mg tablet 25 mg PO BID@0900,2100 Qty: 180 3RF Soothe Hydration 1.25 % drops ophthalmic (eye) aspirin 325 mg tablet,delayed release (DR/EC) 325 mg PO DAILY Qty: 30 0RF Discharge Orders: Discharge ED (Routine); Ordered 12/01/22 Ordered By: Bonilla Reed Referrals: Lloyd Gallagher MD [Primary Care Provider] - 4-7 days Patient Instructions: Fever in Adults (ED) Activity Restrictions/Additional Instructions: Check your temperature 3 times daily. Treat accordingly with Tylenol. Plenty of clear liquids. Antibiotics as directed for coverage of potential tick fever. Tick panel has been sent, and will be back in a few days. Ask your doctor for the results. Follow-up with your doctor early next week. If still experiencing fevers in 48 hours, a repeat COVID antigen test could be considered. Return for worsening mental status, inability to control fever, development of new or worrisome symptoms. Coding Level of Care Code ED Principal Biostatistician for Miles Arndt
[2022-12-04 16:09] LABS: Lyme AB Screen <0.90 index
[2022-12-06 21:56] LABS: E. Chaffeensis AB IGG <1:64; E. Chaffeensis AB IGM <1:20
[2022-12-06 23:24] LABS: RMSF IGG NOT DETECTED; RMSF IGM NOT DETECTED
== END 2022-12-01 04:56 | disposition home or self-care (01) ==
PROVIDERS: Emergency Medicine; Physician Assistant; Emergency Provider Emergency Medicine; PCP Family Medicine Adult Medicine
DX: R50.9 Fever, unspecified (principal); Z79.82 Long term (current) use of aspirin; Z20.822 Contact with and (suspected) exposure to COVID-19; E11.9 Type 2 diabetes mellitus without complications; E78.5 Hyperlipidemia, unspecified; I10 Essential (primary) hypertension
CPT/HCPCS: 71045; 80053; 81001; 81003; 83605; 85025; 86618; 86666; 86757; 87426; 87804; 93005; 99285

== ENCOUNTER → 2022-12-03 10:29 | Outpatient (BNVA) | payer MEDICARE, OTHER, SELFPAY | PROVIDERS: PCP Family Medicine Adult Medicine; Visit Provider Nurse Practitioner Family | DX: U07.1 COVID-19 (principal) | CPT/HCPCS: 87426 ==

== ENCOUNTER → 2022-12-07 08:52 | Outpatient (BNVA) | payer MEDICARE, OTHER, SELFPAY | PROVIDERS: PCP Family Medicine Adult Medicine; Visit Provider Family Medicine Adult Medicine | DX: U07.1 COVID-19 (principal) | CPT/HCPCS: 87426 ==

== ENCOUNTER → 2023-01-09 13:49 | Outpatient (BNVA) | payer MEDICARE, OTHER, SELFPAY | PROVIDERS: PCP Family Medicine Adult Medicine; Visit Provider Internal Medicine Cardiovascular Disease | DX: R00.2 Palpitations (principal); E78.5 Hyperlipidemia, unspecified; Z82.49 Family history of ischemic heart disease and other diseases of the circulatory system; R73.09 Other abnormal glucose | CPT/HCPCS: 99214 ==

== ENCOUNTER 2023-01-25 09:02 | Outpatient (CLI) | payer MEDICARE, OTHER, SELFPAY ==
--- NOTE | 2023-01-25 09:09 | MM_ITS ---
WS: [id number] SCREENING DIGITAL TOMOSYNTHESIS MAMMOGRAM WITH CAD HISTORY: SCREENING COMPARISON: 07/26/2022 and 10/27/2021, 09/01/2020 Bilateral CC and MLO with tomosynthesis views submitted. Synthetic mammography reviewed. Computer aid ed detection analyzed. Breast composition: There are scattered areas of fibroglandular density. No suspicious masses, microc alcifications or architectural distortion. Biopsy clip anterior RIGHT breast. Benign calcifications w ithin each breast. MM/[id number] IMPRESSION: BI-RADS: 2-Benign FOLLOW UP: 1 Year Follow-up
== END 2023-01-25 09:03 | disposition home or self-care (01) ==
LOC: RAD 09:04
PROVIDERS: PCP Family Medicine Adult Medicine; Visit Provider Family Medicine Adult Medicine
DX: Z12.31 Encounter for screening mammogram for malignant neoplasm of breast (principal); R92.2 Inconclusive mammogram
CPT/HCPCS: 77063; 77067

== ENCOUNTER → 2023-02-01 11:09 | Outpatient (BNVA) | payer MEDICARE, OTHER, SELFPAY | PROVIDERS: PCP Family Medicine Adult Medicine; Visit Provider Family Medicine Adult Medicine | DX: R73.09 Other abnormal glucose (principal) | CPT/HCPCS: 83036 ==

== ENCOUNTER → 2023-03-22 08:48 | Outpatient (BNVA) | payer MEDICARE, OTHER, SELFPAY | PROVIDERS: PCP Family Medicine Adult Medicine; Visit Provider Dermatology | DX: L20.89 Other atopic dermatitis (principal) | CPT/HCPCS: 99212 ==

== ENCOUNTER → 2023-04-18 14:52 | Outpatient (BNVA) | payer MEDICARE, OTHER, SELFPAY | PROVIDERS: PCP Family Medicine Adult Medicine; Visit Provider Dermatology | DX: L20.89 Other atopic dermatitis (principal); L82.1 Other seborrheic keratosis; L82.0 Inflamed seborrheic keratosis; L85.3 Xerosis cutis | CPT/HCPCS: 17110; 99214 ==

== ENCOUNTER → 2023-07-23 13:06 | Outpatient (BNVA) | payer MEDICARE, OTHER, SELFPAY | PROVIDERS: PCP Family Medicine Adult Medicine; Visit Provider Dermatology | DX: L20.89 Other atopic dermatitis (principal); L85.3 Xerosis cutis | CPT/HCPCS: 99213 ==

== ENCOUNTER → 2024-01-13 09:41 | Outpatient (BNVA) | payer MEDICARE, OTHER, SELFPAY | PROVIDERS: PCP Family Medicine Adult Medicine; Visit Provider Nurse Practitioner Family | DX: I48.0 Paroxysmal atrial fibrillation (principal); I10 Essential (primary) hypertension | CPT/HCPCS: 99214 ==

== ENCOUNTER 2024-03-04 09:42 | Outpatient (CLI) | payer MEDICARE, OTHER, SELFPAY ==
--- NOTE | 2024-03-04 09:49 | MM_ITS ---
WS: [id number] BILATERAL SCREENING DIGITAL TOMOSYNTHESIS MAMMOGRAM WITH CAD HISTORY: SCREENING COMPARISON: 01/25/2023, 07/26/2022 Bilateral CC and MLO views with tomosynthesis and synthetic mammography submitted. Computer aided det ection analyzed. Breast composition: There are scattered areas of fibroglandular density. No suspicious masses, microc alcifications or architectural distortion. Benign bilateral vascular calcifications. Biopsy clip in t he anterior RIGHT breast is identified. MM/[id number] IMPRESSION: BI-RADS: 2-Benign FOLLOW UP: 1 Year Follow-up
== END 2024-03-04 09:43 | disposition home or self-care (01) ==
LOC: RAD 09:42
PROVIDERS: PCP Family Medicine Adult Medicine; Visit Provider Family Medicine Adult Medicine
DX: Z12.31 Encounter for screening mammogram for malignant neoplasm of breast (principal); R92.323 Mammographic fibroglandular density, bilateral breasts; R92.1 Mammographic calcification found on diagnostic imaging of breast
CPT/HCPCS: 77063; 77067

== ENCOUNTER → 2024-07-13 15:11 | Outpatient (BNVA) | payer MEDICARE, OTHER, SELFPAY | PROVIDERS: PCP Family Medicine Adult Medicine; Visit Provider Internal Medicine | DX: R00.2 Palpitations (principal); E78.5 Hyperlipidemia, unspecified; Z82.49 Family history of ischemic heart disease and other diseases of the circulatory system; R73.09 Other abnormal glucose | CPT/HCPCS: 99214 ==

== ENCOUNTER → 2024-09-29 09:10 | Outpatient (BNVA) | payer MEDICARE, OTHER, SELFPAY | PROVIDERS: PCP Family Medicine; Visit Provider Family Medicine | DX: E55.9 Vitamin D deficiency, unspecified (principal); I10 Essential (primary) hypertension; I48.0 Paroxysmal atrial fibrillation; E78.5 Hyperlipidemia, unspecified; R73.01 Impaired fasting glucose; L30.9 Dermatitis, unspecified | CPT/HCPCS: 80053; 80061; 82306; 83036; 84443; 85025 ==

== ENCOUNTER → 2024-10-07 09:59 | Outpatient (BNVA) | payer MEDICARE, OTHER, SELFPAY | PROVIDERS: PCP Family Medicine; Visit Provider Surgery | DX: Z12.11 Encounter for screening for malignant neoplasm of colon (principal) | CPT/HCPCS: 99024; 99204 ==

== ENCOUNTER 2024-10-22 09:37 | Day surgery (SDC) | payer MEDICARE, OTHER, SELFPAY ==
[2024-10-22 09:52] VITALS: BP 135/75; PULSE 70; RESP 18; TEMP 36.6; O2SAT 95; BMI 28.3
[2024-10-22] MEDS: sodium chloride 0.9% 500 ML 15 ML IV (10:00)
--- NOTE | 2024-10-22 10:02 | P.HPUD_ITS ---
Surgery/Procedure H&P Update DATE OF PROCEDURE: October 22, 2024 DATE H&P PERFORMED: 10/07/24 H&P UPDATE INFORMATION: I have reviewed H&P completed within last 30 days, I have examined patient prior to procedure, No changes to prior documentation and [place] [facility] [place] indicated PLANNED PROCEDURE: Operation Date: 10/22/24 11:00 Proposed Procedures p Colonoscopy [id number] G0121 Z12.11(Not Applicable) - Jaison Culp MD
--- NOTE | 2024-10-22 10:05 | P.ANESASSM_ITS ---
Pre-Anesthetic Assessment Height/Weight: Height 1.65 m Weight 77.111 kg Temp Pulse Resp BP Pulse Ox O2 Del Method 97.8 F 70 18 135/75 95 Room Air 10/22/24 09:52 10/22/24 09:52 10/22/24 09:52 10/22/24 09:52 10/22/24 09:52 10/22/24 09:52 Preop Diagnosis: screening Operation Date: 10/22/24 11:00 Proposed Procedures p Colonoscopy 15301 G0121 Z12.11(Not Applicable) - Jaison Culp MD Was Beta Jey taken within 24 hours: Yes Last intake: Intake Last Liquid Date 10/21/24 Last Liquid Time 20:30 Last Solid Date 10/20/24 Last Solid Time 18:00 Social No alcohol and No tobacco Exam alert and oriented x 3 Airway Submandibular: within normal limits Cervical ROM: within normal limits Mallampati: Class II Dentition: full History/ROS No significant history except as noted Pulmonary None reported CV/HEM Arrythmia None reported Hepatic None reported GI None reported Metabolic None reported Musc/skel None reported Neuropsych None reported Anesthetic Plan ASA status: 2 Anesthesia: MAC Risk of > 500 ml blood loss (7ml/kg in children): No Medications/Allergies Home Medications ?Medication ?Instructions ?Recorded ?Confirmed ?Last Taken ?Type diflorasone 0.05 % topical ointment 1 applic topical B ID 07/28/20 10/20/24 Unknown History clobetasol 0.05 % topical ointment 1 applic topical BI D 2 weeks #45 01/16/22 10/20/24 Unknown Rx grams aspirin 325 mg tablet,delayed 325 mg PO DAILY #30 tabs 08/03/22 10/20/24 10/16/24 Rx release povidone 1.25 % eye drops (Soothe 1 drp ophthalmic (ey e) DAILY 10/25/22 10/20/24 Unknown History Hydration) cholecalciferol (vitamin D3) 25 50 mcg PO DAILY 10/20/24 10/21/24 History mcg (1,000 unit) capsule ezetimibe 10 mg tablet 10 mg PO BID cholesterol #18 0 tabs 04/01/24 10/20/24 10/21/24 Rx metoprolol tartrate 25 mg tablet 25 mg PO BID@0900,210 0 atrial fib 09/15/24 10/22/24 10/22/24 Rx #180 tabs [facility] 1 tab PO DAILY 09/29/2410/1010/21/24 History dupilumab 300 mg/2 mL subcutaneous 300 mg SUBCUT .EVER [id number] 10/20/24 10/20/24 10/17/24 History pen injector (Dupixent) Allergies Allergy/AdvReac Type Severity Reaction Status Date / Time omeprazole Allergy Mild ALGY-Joint Verified 10/20/24 10:02 Pain bacitracin (From Neosporin Allergy ALGY-Redness Verified 10/20/24 10:02 ([id number])) of Skin cedarwood Allergy Unknown Verified 10/20/24 10:02 neomycin (From Neosporin Allergy ALGY-Redness Verified 10/20/24 10:02 ([id number])) of Skin oxycodone (From Percocet) Allergy ADR-Vomitin Verified 10/20/24 10:02 g poison lisa extract Allergy Unknown Verified 10/20/24 10:02 polymyxin B (From Neosporin Allergy ALGY-Redness Verified 10/20/24 10:02 ([id number])) of Skin wool Allergy Unknown Verified 10/20/24 10:02 doxycycline AdvReac Severe ALGY-Anaphy Verified 10/20/24 10:02 laxis atorvastatin AdvReac Intermediate ADR-Muscle Verified 10/20/24 10:02 Pain lovastatin AdvReac ADR-Cramping Verified 10/20/24 10:02 of the Muscles dayprell Allergy ALGY-Hives Uncoded 10/20/24 10:02 Current Medications Generic Name Dose Route Start Last Admin Trade Name Freq PRN Reason Stop Dose Admin Sodium Chloride 500 mls @ 15 mls/hr 10/22/24 09:42 10/22/24 10:00 Sodium Chloride 0.9% IV 10/23/24 09:41 15 mls/hr .Q24H PRN Administration COLONOSCOPY FLUIDS PFSH Anesthesia Medical History Statin myopathy Diabetes type 2 Vitamin D deficiency Fasting hyperglycemia Paroxysmal atrial fibrillation sees DR. Olivier; on asa Eczema Sees [facility]; on Dupizent Atrial fibrillation with RVR Hypertension Dyslipidemia Surgical History Hx of colonoscopy 2014--normal History of bilateral cataract extraction History of right breast biopsy benign Family History Other CAD (coronary artery disease) Diabetes Hyperlipidemia Hypertension Denies family history of Dementia Anesthesia complication Bleeding disorder Family history of premature coronary artery disease Lung disease Cancer Stroke Social History Smoking and tobacco/nicotine status: never used tobacco/nicotine Alcohol intake: current Alcohol intake frequency: holidays/special occasions only Substance/Drug Use: never Caregiver/support person: No Lives independently: Yes Household members: spouse Housing: House Marital status: Number of children: 3 Highest education level completed: Some College, No Degree service: No 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
[2024-10-22 10:55] VITALS: BP 141/78; PULSE 75; RESP 18; TEMP 36.3; O2SAT 94
[2024-10-22 11:02] VITALS: BP 126/70; PULSE 76; RESP 18; TEMP 36.3; O2SAT 92
--- NOTE | 2024-10-22 11:30 | ANE.PACU2 ---
Inpatient post-anesthesia follow up: Airway intact: Yes Vital signs: Temperature 97.3 F Pulse Rate 76 Respiratory Rate 18 Blood Pressure 126/70 Pulse Oximetry 92 Oxygen Delivery Me thod Room Air Oxygen Flow Rate Fraction of Inspir ed Oxygen Hydration adequate: Yes Nausea and vomiting: No Pain level: 1 Mental status: Baseline
== END 2024-10-22 11:30 | disposition home or self-care (01) ==
PROVIDERS: PCP Family Medicine; Visit Provider Surgery
PROC: 0DJD8ZZ Inspection of Lower Intestinal Tract, Via Natural or Artificial Opening Endoscopic (ICD-10-PCS; CPT 45330; 2024-10-22 11:00)
DX: Z12.11 Encounter for screening for malignant neoplasm of colon (principal); E11.9 Type 2 diabetes mellitus without complications; E78.5 Hyperlipidemia, unspecified; I48.0 Paroxysmal atrial fibrillation; Z79.620 Long term (current) use of immunosuppressive biologic; Z88.8 Allergy status to other drugs, medicaments and biological substances; Z88.5 Allergy status to narcotic agent
CPT/HCPCS: 45330; J2704; J7040

== ENCOUNTER → 2024-10-28 11:15 | Outpatient (BNVA) | payer MEDICARE, OTHER, SELFPAY | PROVIDERS: PCP Family Medicine; Visit Provider Surgery | DX: Z09 Encounter for follow-up examination after completed treatment for conditions other than malignant neoplasm (principal) | CPT/HCPCS: 99212 ==

== ENCOUNTER 2024-12-05 01:47 | Emergency (ER) | payer MEDICARE, OTHER, SELFPAY ==
[2024-12-05] VITALS (7 sets, daily range): BP systolic 104–126; BP diastolic 58–87; PULSE 78–154; RESP 18–21; TEMP 36.9; O2SAT 92–98; BMI 28.1
--- NOTE | 2024-12-05 02:23 | PC.NURSE ---
EKG was performed by kandi Coley at time of triage and given to Dr Polo.
--- NOTE | 2024-12-05 02:23 | W.ED.ARRPALP ---
HPI - Arrhythmia/Palpitations General: Chief Complaint: Arrhythmia/Palpitations Stated Complaint: afib pulse 129 dizzy pain/pressure in L arm Time Seen by Provider: 12/05/24 02:23 History of Present Illness: Miss Evangelista presents to the emergency room with a chief complaint of a racing heart. She has a history of atrial fibrillation (AFib) and has experienced similar episodes in the past. The patient reports feeling her heart racing, which prompted her to seek medical attention. She denies any chest pain, shortness of breath, or dizziness associated with this episode. She also denies any abdominal pain, urinary or bowel issues, rashes, or other concerning symptoms. Miss Evangelista recalls a previous similar episode where she received treatment to slow her heart rate and underwent an ultrasound of her heart, which showed no abnormalities. During that incident, she was given medication that successfully slowed her heart rate. The patient reports taking aspirin but is not on any blood thinners. She denies smoking or using drugs, and reports drinking alcohol only once a year. Related Data Home Medications ?Medication ?Instructions ?Recorded ?Confirmed diflorasone 0.05 % topical ointment 1 applic topical BID 07/28/20 11/09/24 povidone 1.25 % eye drops (Soothe 1 drp ophthalmic (eye) DAILY 10/25/22 11/09/24 Hydration) cholecalciferol (vitamin D3) 25 50 mcg PO DAILY 01/09/23 11/09/24 mcg (1,000 unit) capsule [facility] 1 tab PO DAILY 09/29/24 11/09/24 dupilumab 300 mg/2 mL subcutaneous 300 mg SUBCUT .[id number] 10/20/24 11/09/24 pen injector (Dupixent) Previous Rx's ?Medication ?Instructions ?Recorded clobetasol 0.05 % topical ointment 1 applic topical BID 2 weeks #45 01/16/22 grams aspirin 325 mg tablet,delayed 325 mg PO DAILY #30 tabs 08/03/22 release ezetimibe 10 mg tablet 10 mg PO BID cholesterol #180 tabs 04/01/24 metoprolol tartrate 25 mg tablet 25 mg PO BID@0900,2100 atrial fib 09/15/24 #180 tabs mupirocin 2 % topical ointment 1 applic topical BID 7 days #22 11/09/24 (Centany) grams sulfamethoxazole 800 1 tab PO BID 7 days #14 tabs 11/09/24 mg-trimethoprim 160 mg tablet (Bactrim DS) Allergies Allergy/AdvReac Type Severity Reaction Status Date / Time omeprazole Allergy Mild ALGY-Joint Verified 11/09/24 13:39 Pain bacitracin (From Neosporin Allergy ALGY-Redness Verified 11/09/24 13:39 ([id number])) of Skin cedarwood Allergy Unknown Verified 11/09/24 13:39 neomycin (From Neosporin Allergy ALGY-Redness Verified 11/09/24 13:39 ([id number])) of Skin oxycodone (From Percocet) Allergy ADR-Vomitin Verified 11/09/24 13:39 g poison lisa extract Allergy Unknown Verified 11/09/24 13:39 polymyxin B (From Neosporin Allergy ALGY-Redness Verified 11/09/24 13:39 ([id number])) of Skin wool Allergy Unknown Verified 11/09/24 13:39 doxycycline AdvReac Severe ALGY-Anaphy Verified 11/09/24 13:39 laxis atorvastatin AdvReac Intermediate ADR-Muscle Verified 11/09/24 13:39 Pain lovastatin AdvReac ADR-Cramping Verified 11/09/24 13:39 of the Muscles dayprell Allergy ALGY-Hives Uncoded 11/09/24 13:39 Review of Systems General: Reports: 10 or more systems reviewed and unremarkable except in HPI and below PFSH ED PFSH: Medical History Statin myopathy Diabetes type 2 Vitamin D deficiency Fasting hyperglycemia Paroxysmal atrial fibrillation sees DR. Olivier; on asa Eczema Sees [facility]; on Dupizent Atrial fibrillation with RVR Hypertension Dyslipidemia Surgical History Hx of colonoscopy 2014--normal History of bilateral cataract extraction History of right breast biopsy benign Family History Other CAD (coronary artery disease) Diabetes Hyperlipidemia Hypertension Denies family history of Dementia Anesthesia complication Bleeding disorder Family history of premature coronary artery disease Lung disease Cancer Stroke Social History (Reviewed 10/28/24 @ 11:45 by KALLIE Velasquez Smoking and tobacco/nicotine status: never used tobacco/nicotine Alcohol intake: current Alcohol intake frequency: holidays/special occasions only Substance/Drug Use: never Caregiver/support person: No Lives independently: Yes Household members: spouse Housing: House Marital status: Number of children: 3 Highest education level completed: Some College, No Degree service: No 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: Female Beverley/Zoroastrian: Gnosticist Physical Exam Const: COMMON NORMALS: no acute distress, patient oriented x3, healthy appearing, alert and well nourished HENMT: COMMON NORMALS: normocephalic HEAD & SCALP: normocephalic Eye: COMMON NORMALS: EOMs intact bilaterally Neck/C-Spine: COMMON NORMALS: full ROM and supple Resp: COMMON NORMALS: normal respiratory effort, No retractions and clear to auscultation bilaterally AUSCULTATION: clear to auscultation bilaterally Cardio: COMMON NORMALS: No gallops present (Cardio) and No murmurs present (Cardio) RATE: tachycardic RHYTHM: abnormal rhythm irregularly irregular GI: COMMON NORMALS: Soft to palpation and non-tender PALPATION: Yes Soft to palpation Extremity: GENERAL: Yes normal exam except as noted Neuro: COMMON NORMALS: patient oriented x3 SENSORIUM/ORIENTATION: Yes alert Skin: COMMON NORMALS: no rashes or lesions noted GENERAL SKIN EXAM: no rashes or lesions noted Course Vital Signs: Vital signs: Vital Signs Temperature 98.4 F 12/05/24 01:54 Pulse Rate 82 12/05/24 03:27 Respiratory Rate 18 12/05/24 03:27 Blood Pressure 109/71 12/05/24 03:27 Pulse Oximetry 92 12/05/24 03:27 Oxygen Delivery Me thod Room Air 12/05/24 02:18 MDM - Arrhythmia/Palpitations Medical Decision Making 34-year-old female presents emergency department for evaluation of racing heart rate. She was found to be in A-fib with RVR. She does have a history of A-fib but has been rate controlled recently. She has taken all of her medicine as prescribed. Patient was started on diltiazem and she converted back to sinus rhythm. She was monitored for approximately 1 hour and stayed in sinus rhythm off of Cardizem. Instructed the patient to resume her previously prescribed metoprolol. Etiology of the onset of A-fib today was unclear. Her troponins and ST segments were reassuring for no acute STEMI. Encouraged the patient to follow-up with her rib cutter for further management of A-fib. Return precautions were discussed and the patient was discharged home in good condition Lab Data 12/05/24 02:03 12/05/24 02:03 Radiology Impressions Chest X-Ray 12/05/24 02:24 IMPRESSION: 1. Poor inspiratory effort with some crowding of pulmonary markings and possible accentuation of the apparent heart size. 2. Mild left basilar atelectasis and/or pneumonia. Laboratory Results WBC 9.05 10^3/uL (3.29-11.43) 12/05/24 02:03 RBC 5.14 10^6/uL (3.85-5.65) 12/05/24 02:03 Hgb 14.40 g/dL (11.27-16.99) 12/05/24 02:03 Hct 45.9 % (36-47) 12/05/24 02:03 MCV 89.3 fl (85-98) 12/05/24 02:03 MCH 28.0 pg (27-33) 12/05/24 02:03 MCHC 31.4 g/dL (30-55) 12/05/24 02:03 RDW 14.7 % (12.1-15.1) 12/05/24 02:03 Plt Count 298 10^3/cmm (157-399) 12/05/24 02:03 MPV 10.6 fL (7.4-10.4) H 12/05/24 02:03 Neut % (Auto) 58.0 % 12/05/24 02:03 Lymph % (Auto) 29.9 % 12/05/24 02:03 [place] % (Auto) 8.1 % 12/05/24 02:03 Eos % (Auto) 3.2 % 12/05/24 02:03 Baso % (Auto) 0.6 % 12/05/24 02:03 Neut # (Auto) 5.25 10^3/uL (1.8-7.7) 12/05/24 02:03 Lymph # (Auto) 2.7 10^3/uL (0.8-4.8) 12/05/24 02:03 [place] # (Auto) 0.7 10^3/uL (0.2-0.9) 12/05/24 02:03 Eos # (Auto) 0.3 10^3/uL (0.0-0.8) 12/05/24 02:03 Baso # (Auto) 0.1 10^3/uL (0.0-0.1) 12/05/24 02:03 Nucleated RBC % (auto) 0 % 12/05/24 02:03 Nucleated RBCs # 0.0 /100WBC 12/05/24 02:03 Sodium 142 mmol/L (136-145) 12/05/24 02:03 Potassium 4.6 mmol/L (3.5-5.1) 12/05/24 02:03 Chloride 106 mmol/L (98-107) 12/05/24 02:03 Carbon Dioxide 25 mmol/L (22-29) 12/05/24 02:03 Anion Gap 15.6 (5-19) 12/05/24 02:03 BUN 13 mg/dL (8-23) 12/05/24 02:03 Creatinine 0.6 mg/dL (0.5-0.9) 12/05/24 02:03 GFR Calculation Not Reportable 12/05/24 02:03 Glucose 143 mg/dL (65-115) H 12/05/24 02:03 Calculated Osmolality 297 mOsm/kg (285-295) H 12/05/24 02:03 Calcium 9.2 mg/dL (8.5-10.5) 12/05/24 02:03 Total Bilirubin 0.2 mg/dL (0.15-1.2) 12/05/24 02:03 AST 15 U/L (0-32) 12/05/24 02:03 ALT 16 U/L (0-33) 12/05/24 02:03 Alkaline Phosphatase 112 U/L (35-105) H 12/05/24 02:03 Troponin T Baseline < 6 ng/L (0-10) 12/05/24 02:03 Troponin T 120 Minute 8.57 ng/L (0-10) 12/05/24 03:50 Delta Troponin T 2.07405 ABS# (0-10) 12/05/24 03:50 NT-Pro-B Natriuret Pep < 36 pg/mL (0-125) 12/05/24 02:03 Total Protein 6.6 g/dL (6.6-8.7) 12/05/24 02:03 Albumin 4.1 g/dL (3.5-5.2) 12/05/24 02:03 Globulin 2.5 g/dL (1.3-4.6) 12/05/24 02:03 All radiology interpretation(s) finalized by discharge Discharge Plan Discharge Patient Disposition: Home Clinical Impression: Atrial fibrillation with rapid ventricular response, Paroxysmal atrial fibrillation Condition: Stable Prescriptions: No Action cholecalciferol (vitamin D3) 25 mcg (1,000 unit) capsule 50 mcg PO DAILY diflorasone 0.05 % ointment 1 applic topical BID clobetasol 0.05 % ointment 1 applic topical BID 14 Days Qty: 45 1RF Rx Instructions: Apply to affected area no more than 2 weeks per month. not for face or skin folds Soothe Hydration 1.25 % drops 1 drp ophthalmic (eye) DAILY [facility] capsule 1 tab PO DAILY Rx Instructions: Take one capsule PO daily for eyes. sulfamethoxazole-trimethoprim [Bactrim DS] 800-160 mg tablet 1 tab PO BID 7 Days Qty: 14 0RF mupirocin [Centany] 2 % ointment 1 applic topical BID 7 Days Qty: 22 0RF ezetimibe 10 mg tablet 10 mg PO BID Qty: 180 2RF metoprolol tartrate 25 mg tablet 25 mg PO BID@0900,2100 Qty: 180 3RF Dupixent Pen 300 mg/2 mL pen injector 300 mg SUBCUT .[id number] aspirin 325 mg tablet,delayed release (DR/EC) 325 mg PO DAILY Qty: 30 0RF Discharge Orders: Discharge ED (Routine); Ordered 12/05/24 Ordered By: Wilbert Law Referrals: Aleksandra Quezada MD [Primary Care Provider] - Discharge Diet: Usual diet Discharge Activity: Increase activity as tolerated Patient Instructions: Opioid Safety, Pain Management Activity Restrictions/Additional Instructions: Please follow-up with your rib cutter. Return to the emergency department any new or worsening symptoms. Print Language: Egyptian Coding Level of Care Code ED Sinker Winder for Miles Arndt
--- NOTE | 2024-12-05 02:24 | XRR_ITS ---
PROCEDURE INFORMATION: Exam: XR Chest Exam date and time: 12/05/2024 2:31 AM Age: 74 years old Clinical indication: Shortness of breath and other: Tachycardia; SOB with tachycardia. History of afib. TECHNIQUE: Imaging protocol: Radiologic exam of the chest. Views: 1 view. COMPARISON: CR XR chest 1V portable [id number] 11/30/2022 9:00 PM FINDINGS: Lungs: Poor inspiratory effort with some crowding of pulmonary markings and possible accentuation of the apparent heart size. Mild left basilar atelectasis and/or pneumonia. Pleural spaces: Unremarkable. No pleural effusion. No pneumothorax. Heart/Mediastinum: See Lungs finding. Bones/joints: Minimal dextroscoliosis. Other findings: Stable postoperative changes over the right shoulder with metallic artifact. XR/XR chest 1V portable [id number] IMPRESSION: 1. Poor inspiratory effort with some crowding of pulmonary markings and possible accentuation of the apparent heart size. 2. Mild left basilar atelectasis and/or pneumonia.
[2024-12-05 02:33] LABS: Basophils # 0.1 10^3/uL (0.0-0.1); Basophils % 0.6 %; Eosinophils # 0.3 10^3/uL (0.0-0.8); Eosinophils % 3.2 %; Hematocrit 45.9 % (36-47); Lymphocytes # 2.7 10^3/uL (0.8-4.8); Lymphocytes % 29.9 %; Mean Corpuscular HGB Conc 31.4 g/dL (30-55); Mean Corpuscular Volume 89.3 fl (85-98); Mean Platelet Volume 10.6 fL (7.4-10.4); Monocytes # 0.7 10^3/uL (0.2-0.9); Monocytes % 8.1 %; Neutrophils # 5.25 10^3/uL (1.8-7.7); Nucleated Red Blood Cells % 0 %; Platelet Count 298 10^3/cmm (157-399); Red Blood Count 5.14 10^6/uL (3.85-5.65); Red Cell Distribution Width 14.7 % (12.1-15.1); White Blood Count 9.05 10^3/uL (3.29-11.43)
[2024-12-05] MEDS: dilTIAZem 100 MG in sodium chloride 0.9% (add-van) 100 ML IV (02:40)
[2024-12-05 02:45] LABS: Troponin(5th) Baseline < 6 ng/L (0-10)
[2024-12-05 02:52] LABS: Alanine Aminotransferase 16 U/L (0-33); Albumin Level 4.1 g/dL (3.5-5.2); Alkaline Phosphatase 112 U/L (35-105); Aspartate Amino Transferase 15 U/L (0-32); Blood Urea Nitrogen 13 mg/dL (8-23); Calcium 9.2 mg/dL (8.5-10.5); Carbon Dioxide 25 mmol/L (22-29); Chloride 106 mmol/L (98-107); Creatinine Clr Calc Pharmacy 64.1308; Globulin 2.5 g/dL (1.3-4.6); Glucose 143 mg/dL (65-115); NT Pro B Type Natriuretic Pept < 36 pg/mL (0-125); Osmolality Calculated 297 mOsm/kg (285-295); Sodium 142 mmol/L (136-145); Total Bilirubin 0.2 mg/dL (0.15-1.2); Total Protein 6.6 g/dL (6.6-8.7)
[2024-12-05 02:53] LABS: Anion Gap 15.6 (5-19); Potassium 4.6 mmol/L (3.5-5.1)
[2024-12-05 04:14] LABS: Troponin 5 2HR 8.57 ng/L (0-10); Troponin 5 2HR Delta 2.57001 ABS# (0-10)
--- NOTE | 2024-12-05 04:23 | ECG_ITS ---
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
== END 2024-12-05 04:53 | disposition home or self-care (01) ==
PROVIDERS: Emergency Provider General Practice; PCP Family Medicine
DX: I48.20 Chronic atrial fibrillation, unspecified (principal); I48.0 Paroxysmal atrial fibrillation; Z79.82 Long term (current) use of aspirin; E78.5 Hyperlipidemia, unspecified; I10 Essential (primary) hypertension; E11.9 Type 2 diabetes mellitus without complications
CPT/HCPCS: 71045; 80053; 83880; 84484; 85025; 93005; 96365; 99285; J3490; J9999

== ENCOUNTER → 2024-12-16 13:50 | Outpatient (BNVA) | payer MEDICARE, OTHER, SELFPAY | PROVIDERS: PCP Family Medicine; Visit Provider Nurse Practitioner Family | DX: I48.0 Paroxysmal atrial fibrillation (principal); I10 Essential (primary) hypertension; E78.5 Hyperlipidemia, unspecified; E11.69 Type 2 diabetes mellitus with other specified complication; Z79.01 Long term (current) use of anticoagulants | CPT/HCPCS: 99214 ==

== ENCOUNTER 2024-12-25 08:33 | Outpatient (CLI) | payer MEDICARE, OTHER, SELFPAY ==
[2024-12-25 09:13] LABS: Anion Gap 15.8 (5-19); Blood Urea Nitrogen 12 mg/dL (8-23); Carbon Dioxide 26 mmol/L (22-29); Chloride 105 mmol/L (98-107); Glucose 114 mg/dL (65-115); Osmolality Calculated 295 mOsm/kg (285-295); Potassium 4.8 mmol/L (3.5-5.1); Sodium 142 mmol/L (136-145)
== END 2024-12-25 08:34 | disposition home or self-care (01) ==
LOC: LAB 08:36
PROVIDERS: PCP Family Medicine; Visit Provider Nurse Practitioner Family
DX: I48.0 Paroxysmal atrial fibrillation (principal)
CPT/HCPCS: 36415; 80048

== ENCOUNTER 2025-01-01 09:36 | Outpatient (CLI) | payer MEDICARE, OTHER, SELFPAY ==
--- NOTE | 2025-01-01 | ECG_ITS ---
[employer] 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 Baseline heart rate was 70 beats per minute. Baseline blood pressure was 132/78 millimeters of mercury. Target heart rate was 147 beats per minute. Maximum heart rate achieved was 144, which was 97% of the target heart rate. Maximum blood pressure was 160/79 millimeters of mercury. Total exercise time was 5 minutes. Maximum METs achieved was 7, maximum VO2 was 24. The reason for ending the test was maximum effort achieved. The patient complained of shortness of breath during the stress test, which then resolved at the end of the test. ELECTROCARDIOGRAM: BASELINE: Showed sinus rhythm, normal axis, no significant ST-T changes at the baseline noted. EXERCISE: At the peak exercise level, no significant ST-T changes suggestive of ischemia noted. RECOVERY: During the recovery period, heart rate dropped appropriately. No significant ST-T changes in the recovery suggestive of ischemia noted. CONCLUSION: 1. Exercise capacity average. 2. Heart rate response was appropriate. 3. Blood pressure response was appropriate. 4. Symptoms not suggestive of ischemia. 5. Electrocardiogram portion of the stress test was not suggestive of ischemia. Electronically Signed On 01-13-2025 23:13:53 CDT by LIAM ERICKSON [id number]
[2025-01-01 10:28] VITALS: BMI 28.3
--- NOTE | 2025-01-01 10:29 | NMCV_ITS ---
NM stephenie perf SPECT r/s* [id number] Keiko Evangelista Age: 74 Gender: F : 1950 Exam Date: 01/01/2025 10:48 Ordering Phys: Ines Mcdonald NP Technologist: LIGIA Anthony Exam Location: [facility] Indications: cp STRESS TEST Please see separate stress test report in [facility] for full findings IMAGE PROTOCOL Rest/Stress 1 Exercise Day Radiopharmaceutical Dose (mCi) Administration Site Administered by Rest: Tc-99m 10.6 IV LIGIA Anthony Sestamibi Stress:Tc-99m 32.6 IV LIGIA Yee Sestamibi Rest: 01-Jan-2025 60 Discovery 630 Stress: 01-Jan-2025 15 Discovery 630 Radiopharmaceutical was injected at 88 % maximum heart rate. Images obtained in supine and prone position. SPECT RESULTS Technical Quality: Good Raw Data Analysis: Normal Image Corrections: No attenuation or motion correction applied Summed Stress Score: 0 Summed Rest Score: 0 Summed Difference Score: 0 PERFUSION FINDINGS SPECT images demonstrate homogeneous tracer distribution throughout the myocardium. FUNCTIONAL RESULTS (calculated via Gated SPECT) Stress Image LV EF (%): 89 Stress EDV (mL):61 TID: 1.16 Stress ESV (mL):7 FUNCTIONAL FINDINGS: There is normal left ventricular systolic function. IMPRESSIONS 1. Normal myocardial perfusion imaging with no evidence of ischemia. 2. LV systolic function is normal Mike Batista MD (Electronically Signed) Final Date: 08 Jan 2025 15:53 S
[2025-01-01 11:36] VITALS: BP 148/76; PULSE 90
== END 2025-01-01 09:37 | disposition home or self-care (01) ==
LOC: CDL 09:39
PROVIDERS: PCP Family Medicine; Visit Provider Nurse Practitioner Family
DX: I48.0 Paroxysmal atrial fibrillation (principal)
CPT/HCPCS: 36415; 78452; 93017; A9500

== ENCOUNTER 2025-03-25 11:16 | Outpatient (CLI) | payer MEDICARE, OTHER, SELFPAY ==
--- NOTE | 2025-03-25 | MM_ITS ---
WS: [id number] Bilateral screening 3D tomosynthesis digital mammogram, 03/25/2025 11:35 AM Clinical Data: ANNUAL SCREENING Comparison: 03/04/2024, 01/25/2023, 07/26/2022, 11/17/2021, 10/27/2021, 09/01/2020, 07/02/2019, 04/29/2018, 04/26/2017, 04/24/2016, 12/18/2014, 12/21/2013, 03/08/2011, 01/17/2011, 01/03/2011, 12/21/2009, 12/21/2008, 12/04/2007, 10/16/2006. Findings: No spiculated masses or clustered calcifications are seen. There are no secondary signs of carcinoma. There are ductal calcifications in both breasts. There is a biopsy clip in the anterior right breast. MM/MM scr BI tomosynthesis [id number] Impression: Negative bilateral mammogram unchanged. Recommend annual screening mammograms. BIRADS: 1 - Negative. FOLLOW UP: 1 Year Follow-up DENSITY: There are scattered areas of fibroglandular density. The CAD toolroom checker was used
== END 2025-03-25 11:17 | disposition home or self-care (01) ==
LOC: RAD 11:17
PROVIDERS: PCP Family Medicine; Visit Provider Family Medicine
DX: Z12.31 Encounter for screening mammogram for malignant neoplasm of breast (principal); R92.1 Mammographic calcification found on diagnostic imaging of breast; Z97.8 Presence of other specified devices
CPT/HCPCS: 77063; 77067

== ENCOUNTER → 2025-03-29 12:31 | Outpatient (BNVA) | payer MEDICARE, OTHER, SELFPAY | PROVIDERS: PCP Family Medicine; Visit Provider Internal Medicine | DX: R00.2 Palpitations (principal); E78.5 Hyperlipidemia, unspecified; Z82.49 Family history of ischemic heart disease and other diseases of the circulatory system; R73.09 Other abnormal glucose | CPT/HCPCS: 99213 ==

== ENCOUNTER → 2025-03-30 09:48 | Outpatient (BNVA) | payer MEDICARE, OTHER, SELFPAY | PROVIDERS: PCP Family Medicine; Visit Provider Family Medicine | DX: E11.69 Type 2 diabetes mellitus with other specified complication (principal); E11.9 Type 2 diabetes mellitus without complications | CPT/HCPCS: 82043; 83036; 85025 ==